=== PATIENT | male | born 1960 | race Caucasian/White ===

== ENCOUNTER 2020-08-28 08:25 | Outpatient (REF) | payer OTHER, SELFPAY ==
[2020-08-28 09:40] LABS: Glucose Urine UA NEG (NEG); Leukocyte Esterase Urine NEG (NEG); Nitrite Urine NEG (NEG); Specific Gravity - Urine 1.025 (1.005-1.025); Urine Blood NEG (NEG); Urine Ketones 5 MG/DL (NEG); Urine Protein NEG (NEG-TRACE)
[2020-08-28 09:42] LABS: Appearance Urine CLEAR; Color Urine YELLOW
[2020-08-28 09:57] LABS: MANUAL DIFF FLAG NO
[2020-08-28 10:05] LABS: Basophils Percent Auto 0.6 % (0-2); Eosinophils Absolute Auto 0.3 X10*3/uL (0.0-0.4); Eosinophils Percent Auto 4.1 % (0-4); Hematocrit 47.1 % (42-52); Hemoglobin 16.2 g/dl (14.0-18.0); Imm Gran Abs Auto 0.01 X10*3/uL (0.00-0.03); Imm Gran Pct Auto 0.2 % (0.0-0.4); Lymphocytes Absolute Auto 1.8 X10*3/uL (1.2-4.9); Lymphocytes Percent Auto 27.5 % (20-40); Mean Corpuscular HGB Conc 34.4 g/dl (31.0-36.0); Mean Corpuscular Hemoglobin 29.1 pg (27.0-33.0); Mean Corpuscular Volume 84.6 fL (80-98); Mean Platelet Volume 10.9 fL (9.4-12.4); Monocytes Absolute Auto 0.6 X10*3/uL (0.1-1.2); Monocytes Percent Auto 8.7 % (2-11); Neutrophils Absolute Auto 3.9 X10*3/uL (2.0-8.3); Neutrophils Percent Auto 58.9 % (45-73); Platelet Count 275 X10*3/uL (160-400); Red Blood Count 5.57 X10*6/uL (4.60-5.80); Red Cell Distribution Width 13.2 % (11.0-16.0); White Blood Count 6.5 X10*3/uL (4.8-10.8)
[2020-08-28 10:31] LABS: Alanine Aminotransferase 19 U/L (0-40); Albumin Level 4.6 g/dL (3.5-5.0); Alkaline Phosphatase 93 U/L (39-117); Anion Gap 14 (12-20); Aspartate Amino Transferase 24 U/L (5-37); Bilirubin Total 1.3 mg/dL (0.0-1.0); Blood Urea Nitrogen 17 mg/dL (9-16); Calcium 9.8 mg/dL (8.4-10.2); Carbon Dioxide 29 mmol/L (22-29); Chloride 102 mmol/L (96-108); Cholesterol 157 mg/dL; Estimated Glomerular Filt Rate 59; Glucose Fasting 93 mg/dL (60-99); HDL Cholesterol 52 mg/dL; LDL Cholesterol Calculated 90 mg/dl; Potassium 4.3 mmol/L (3.3-5.1); Sodium 141 mmol/L (135-145); Total Protein 7.4 g/dL (6.5-8.0); Triglycerides 79 mg/dL
[2020-08-28 10:52] LABS: TSH reflex Free T4 1.32 uIU/mL (0.32-4.0)
== END 2020-08-28 08:26 | disposition home or self-care (01) ==
LOC: HO.LAB 08:25
PROVIDERS: PCP Internal Medicine; Visit Provider Internal Medicine
DX: I10 Essential (primary) hypertension (principal); K21.9 Gastro-esophageal reflux disease without esophagitis; E78.00 Pure hypercholesterolemia, unspecified; R73.01 Impaired fasting glucose; E66.9 Obesity, unspecified
CPT/HCPCS: 36415; 80053; 80061; 81003; 84443; 85025

== ENCOUNTER 2020-11-18 12:03 | Outpatient (REF) | payer OTHER, SELFPAY ==
[2020-11-19 09:21] LABS: Lyme Blot 3.88 index
[2020-11-24 08:38] LABS: 18 KD (IgG) Band NON-REACTIVE; 23 KD (IgG) Band NON-REACTIVE; 23 KD (IgM) Band REACTIVE; 28 KD (IgG) Band NON-REACTIVE; 30 KD (IgG) Band NON-REACTIVE; 39 KD (IgM) Band REACTIVE; 41 KD (IgM) Band NON-REACTIVE; 45 KD (IgG) Band NON-REACTIVE; 58 KD (IgG) Band NON-REACTIVE; 66 KD (IgG) Band NON-REACTIVE; 93 KD (IgG) Band NON-REACTIVE; Lyme IgG Blot Interp NEGATIVE (NEGATIVE); Lyme IgM Blot Interp POSITIVE (NEGATIVE)
[2020-11-24 08:40] LABS: Lyme Abs Screen POSITIVE
== END 2020-11-18 12:04 | disposition home or self-care (01) ==
LOC: HO.HMGCLDS 12:03
PROVIDERS: PCP Internal Medicine; Visit Provider Nurse Practitioner Family
DX: R52 Pain, unspecified (principal)
CPT/HCPCS: 36415; 86617; 86618

== ENCOUNTER 2020-12-22 08:20 | Outpatient (REF) | payer OTHER, SELFPAY ==
[2020-12-22 09:18] LABS: Glucose Urine UA NEG (NEG); Leukocyte Esterase Urine NEG (NEG); Nitrite Urine NEG (NEG); Urine Blood NEG (NEG); Urine Ketones NEG (NEG); Urine Protein NEG (NEG-TRACE)
[2020-12-22 09:19] LABS: Appearance Urine CLEAR; Color Urine YELLOW; MANUAL DIFF FLAG NO
[2020-12-22 09:23] LABS: Basophils Absolute Auto 0.1 X10*3/uL (0.0-0.2); Basophils Percent Auto 0.9 % (0-2); Eosinophils Absolute Auto 0.2 X10*3/uL (0.0-0.4); Eosinophils Percent Auto 4.3 % (0-4); Hematocrit 45.2 % (42-52); Hemoglobin 15.1 g/dl (14.0-18.0); Imm Gran Abs Auto 0.01 X10*3/uL (0.00-0.03); Imm Gran Pct Auto 0.2 % (0.0-0.4); Lymphocytes Absolute Auto 1.7 X10*3/uL (1.2-4.9); Lymphocytes Percent Auto 30.1 % (20-40); Mean Corpuscular HGB Conc 33.4 g/dl (31.0-36.0); Mean Corpuscular Hemoglobin 28.7 pg (27.0-33.0); Mean Corpuscular Volume 85.8 fL (80-98); Mean Platelet Volume 10.6 fL (9.4-12.4); Monocytes Absolute Auto 0.4 X10*3/uL (0.1-1.2); Monocytes Percent Auto 7.8 % (2-11); Neutrophils Absolute Auto 3.2 X10*3/uL (2.0-8.3); Neutrophils Percent Auto 56.7 % (45-73); Platelet Count 224 X10*3/uL (160-400); Red Blood Count 5.27 X10*6/uL (4.60-5.80); Red Cell Distribution Width 13.9 % (11.0-16.0); White Blood Count 5.6 X10*3/uL (4.8-10.8)
[2020-12-22 09:34] LABS: Estimated Average Glucose 111 mg/dL; Hemoglobin A1c % 5.5 %
[2020-12-22 09:44] LABS: Alanine Aminotransferase 19 U/L (0-40); Albumin Level 4.2 g/dL (3.5-5.0); Alkaline Phosphatase 82 U/L (39-117); Anion Gap 11 (12-20); Aspartate Amino Transferase 18 U/L (5-37); Blood Urea Nitrogen 12 mg/dL (9-16); Calcium 9.6 mg/dL (8.4-10.2); Carbon Dioxide 27 mmol/L (22-29); Chloride 109 mmol/L (96-108); Cholesterol 154 mg/dL; Estimated Glomerular Filt Rate > 60; Glucose Fasting 96 mg/dL (60-99); HDL Cholesterol 53 mg/dL; LDL Cholesterol Calculated 81 mg/dl; Potassium 4.2 mmol/L (3.3-5.1); Sodium 143 mmol/L (135-145); Total Protein 6.7 g/dL (6.5-8.0); Triglycerides 102 mg/dL
[2020-12-22 09:58] LABS: TSH reflex Free T4 1.17 uIU/mL (0.32-4.0)
== END 2020-12-22 08:21 | disposition home or self-care (01) ==
LOC: HO.LAB 08:20
PROVIDERS: PCP Internal Medicine; Visit Provider Internal Medicine
DX: I10 Essential (primary) hypertension (principal); K21.9 Gastro-esophageal reflux disease without esophagitis; E78.00 Pure hypercholesterolemia, unspecified; R73.01 Impaired fasting glucose; R17 Unspecified jaundice; E66.9 Obesity, unspecified
CPT/HCPCS: 36415; 80053; 80061; 81003; 83036; 84443; 85025

== ENCOUNTER 2021-04-23 08:07 | Outpatient (REF) | payer OTHER, SELFPAY ==
[2021-04-23 08:31] LABS: MANUAL DIFF FLAG NO
[2021-04-23 08:57] LABS: Basophils Percent Auto 0.5 % (0-2); Eosinophils Absolute Auto 0.2 X10*3/uL (0.0-0.4); Hematocrit 45.6 % (42-52); Hemoglobin 15.4 g/dl (14.0-18.0); Imm Gran Abs Auto 0.01 X10*3/uL (0.00-0.03); Imm Gran Pct Auto 0.2 % (0.0-0.4); Lymphocytes Absolute Auto 1.6 X10*3/uL (1.2-4.9); Lymphocytes Percent Auto 25.9 % (20-40); Mean Corpuscular HGB Conc 33.8 g/dl (31.0-36.0); Mean Corpuscular Hemoglobin 28.9 pg (27.0-33.0); Mean Corpuscular Volume 85.7 fL (80-98); Mean Platelet Volume 10.3 fL (9.4-12.4); Monocytes Absolute Auto 0.6 X10*3/uL (0.1-1.2); Neutrophils Absolute Auto 3.9 X10*3/uL (2.0-8.3); Neutrophils Percent Auto 61.4 % (45-73); Platelet Count 226 X10*3/uL (160-400); Red Blood Count 5.32 X10*6/uL (4.60-5.80); Red Cell Distribution Width 13.6 % (11.0-16.0); White Blood Count 6.3 X10*3/uL (4.8-10.8)
[2021-04-23 09:22] LABS: Appearance Urine CLEAR; Color Urine YELLOW; Glucose Urine UA NEG (NEG); Leukocyte Esterase Urine NEG (NEG); Nitrite Urine NEG (NEG); Urine Blood NEG (NEG); Urine Ketones NEG (NEG); Urine Protein NEG (NEG-TRACE)
[2021-04-23 09:27] LABS: Alanine Aminotransferase 22 U/L (0-40); Albumin Level 4.4 g/dL (3.5-5.0); Alkaline Phosphatase 85 U/L (39-117); Anion Gap 11 (12-20); Aspartate Amino Transferase 24 U/L (5-37); Blood Urea Nitrogen 10 mg/dL (9-16); Calcium 9.6 mg/dL (8.4-10.2); Carbon Dioxide 29 mmol/L (22-29); Chloride 107 mmol/L (96-108); Cholesterol 148 mg/dL; Estimated Glomerular Filt Rate > 60; Glucose Fasting 110 mg/dL (60-99); HDL Cholesterol 48 mg/dL; LDL Cholesterol Calculated 82 mg/dl; Potassium 4.3 mmol/L (3.3-5.1); Sodium 143 mmol/L (135-145); Total Protein 7.2 g/dL (6.5-8.0); Triglycerides 93 mg/dL
[2021-04-23 09:50] LABS: TSH reflex Free T4 1.18 uIU/mL (0.32-4.0)
== END 2021-04-23 08:08 | disposition home or self-care (01) ==
LOC: HO.LAB 08:07
PROVIDERS: PCP Internal Medicine; Visit Provider Internal Medicine
DX: I10 Essential (primary) hypertension (principal); K21.9 Gastro-esophageal reflux disease without esophagitis; E78.00 Pure hypercholesterolemia, unspecified; R73.01 Impaired fasting glucose; E66.9 Obesity, unspecified
CPT/HCPCS: 36415; 80053; 80061; 81003; 84443; 85025

== ENCOUNTER 2021-08-28 07:35 | Outpatient (REF) | payer OTHER, SELFPAY ==
[2021-08-28 07:57] LABS: MANUAL DIFF FLAG NO
[2021-08-28 08:07] LABS: Basophils Percent Auto 0.6 % (0-2); Eosinophils Absolute Auto 0.2 X10*3/uL (0.0-0.4); Eosinophils Percent Auto 2.4 % (0-4); Hematocrit 45.3 % (42.0-52.0); Hemoglobin 15.5 g/dl (14.0-18.0); Imm Gran Abs Auto 0.02 X10*3/uL (0.00-0.03); Imm Gran Pct Auto 0.3 % (0.0-0.4); Lymphocytes Absolute Auto 1.7 X10*3/uL (1.2-4.9); Lymphocytes Percent Auto 25.8 % (20-40); Mean Corpuscular HGB Conc 34.2 g/dl (31.0-36.0); Mean Corpuscular Volume 84.8 fL (80.0-98.0); Mean Platelet Volume 10.1 fL (9.4-12.4); Monocytes Absolute Auto 0.6 X10*3/uL (0.1-1.2); Monocytes Percent Auto 8.7 % (2-11); Neutrophils Absolute Auto 4.2 x10*3/uL (2.0-8.3); Neutrophils Percent Auto 62.2 % (45-73); Platelet Count 250 X10*3/uL (160-400); Red Blood Count 5.34 X10*6/uL (4.60-5.80); White Blood Count 6.8 X10*3/uL (4.8-10.8)
[2021-08-28 08:39] LABS: Appearance Urine CLEAR; Color Urine YELLOW; Glucose Urine UA NEG (NEG); Leukocyte Esterase Urine NEG (NEG); Nitrite Urine NEG (NEG); PH 6.5 (5.0-8.0); Specific Gravity - Urine 1.025 (1.005-1.025); Urine Blood NEG (NEG); Urine Ketones NEG (NEG); Urine Protein TRACE MG/DL (NEG-TRACE)
[2021-08-28 09:05] LABS: Estimated Average Glucose 117 mg/dL; Hemoglobin A1c % 5.7 %
[2021-08-28 09:12] LABS: Alanine Aminotransferase 26 U/L (0-40); Albumin Level 4.2 g/dL (3.5-5.0); Alkaline Phosphatase 89 U/L (39-117); Anion Gap 13 (12-20); Aspartate Amino Transferase 24 U/L (5-37); Bilirubin Total 0.9 mg/dL (0.0-1.0); Blood Urea Nitrogen 17 mg/dL (9-16); Calcium 9.8 mg/dL (8.4-10.2); Carbon Dioxide 28 mmol/L (22-29); Chloride 106 mmol/L (96-108); Cholesterol 144 mg/dL; Estimated Glomerular Filt Rate > 60; Glucose Fasting 102 mg/dL (60-99); HDL Cholesterol 49 mg/dL; LDL Cholesterol Calculated 75 mg/dl; Potassium 4.7 mmol/L (3.3-5.1); Sodium 142 mmol/L (135-145); Total Protein 7.1 g/dL (6.5-8.0); Triglycerides 103 mg/dL
[2021-08-28 09:20] LABS: TSH reflex Free T4 1.18 uIU/mL (0.32-4.0); Vitamin D 25-OH Total 26.7 ng/mL (>30)
== END 2021-08-28 07:36 | disposition home or self-care (01) ==
LOC: HO.LAB 07:35
PROVIDERS: PCP Internal Medicine; Visit Provider Internal Medicine
DX: E78.00 Pure hypercholesterolemia, unspecified (principal); E55.9 Vitamin D deficiency, unspecified; I10 Essential (primary) hypertension; R73.01 Impaired fasting glucose
CPT/HCPCS: 36415; 80053; 80061; 81003; 82306; 83036; 84443; 85025

== ENCOUNTER 2021-12-22 07:20 | Outpatient (REF) | payer OTHER, SELFPAY ==
[2021-12-22 08:29] LABS: Alanine Aminotransferase 29 U/L (0-40); Albumin Level 4.2 g/dL (3.5-5.0); Alkaline Phosphatase 85 U/L (39-117); Anion Gap 12 (12-20); Aspartate Amino Transferase 23 U/L (5-37); Bilirubin Total 0.8 mg/dL (0.0-1.0); Blood Urea Nitrogen 15 mg/dL (9-16); Calcium 9.5 mg/dL (8.4-10.2); Carbon Dioxide 28 mmol/L (22-29); Chloride 107 mmol/L (96-108); Cholesterol 152 mg/dL; Estimated Average Glucose 111 mg/dL; Estimated Glomerular Filt Rate > 60; Glucose Fasting 105 mg/dL (60-99); HDL Cholesterol 43 mg/dL; Hemoglobin A1c % 5.5 %; LDL Cholesterol Calculated 88 mg/dl; Potassium 4.7 mmol/L (3.3-5.1); Sodium 142 mmol/L (135-145); Total Protein 6.9 g/dL (6.5-8.0); Triglycerides 107 mg/dL
[2021-12-22 08:57] LABS: Vitamin D 25-OH Total 28.2 ng/mL (>30)
== END 2021-12-22 07:21 | disposition home or self-care (01) ==
LOC: HO.LAB 07:20
PROVIDERS: PCP Internal Medicine; Visit Provider Internal Medicine
DX: E78.00 Pure hypercholesterolemia, unspecified (principal); I10 Essential (primary) hypertension; R73.01 Impaired fasting glucose; E55.9 Vitamin D deficiency, unspecified
CPT/HCPCS: 36415; 80053; 80061; 82306; 83036

== ENCOUNTER 2022-04-23 07:59 | Outpatient (REF) | payer OTHER, SELFPAY ==
[2022-04-23 08:13] LABS: MANUAL DIFF FLAG NO
[2022-04-23 08:33] LABS: Hematocrit 46.2 % (42.0-52.0); Hemoglobin 15.8 g/dl (14.0-18.0); White Blood Count 5.8 X10*3/uL (4.8-10.8)
[2022-04-23 08:34] LABS: Basophils Percent Auto 0.5 % (0-2); Eosinophils Absolute Auto 0.1 X10*3/uL (0.0-0.4); Eosinophils Percent Auto 1.9 % (0-4); Imm Gran Abs Auto 0.01 X10*3/uL (0.00-0.03); Imm Gran Pct Auto 0.2 % (0.0-0.4); Lymphocytes Absolute Auto 1.5 X10*3/uL (1.2-4.9); Lymphocytes Percent Auto 26.3 % (20-40); Mean Corpuscular HGB Conc 34.2 g/dl (31.0-36.0); Mean Corpuscular Hemoglobin 28.7 pg (27.0-33.0); Mean Platelet Volume 10.1 fL (9.4-12.4); Monocytes Absolute Auto 0.5 X10*3/uL (0.1-1.2); Monocytes Percent Auto 9.2 % (2-11); Neutrophils Absolute Auto 3.6 x10*3/uL (2.0-8.3); Neutrophils Percent Auto 61.9 % (45-73); Platelet Count 258 X10*3/uL (160-400); Red Cell Distribution Width 13.2 % (11.0-16.0)
[2022-04-23 08:39] LABS: Estimated Average Glucose 111 mg/dL; Hemoglobin A1C 150.1565 umol/L; Hemoglobin A1c % 5.5 %
[2022-04-23 08:47] LABS: Appearance Urine Clear; Color Urine Yellow; Glucose Urine UA Negative (Negative); Leukocyte Esterase Urine Negative (Negative); Nitrite Urine Negative (Negative); Specific Gravity - Urine 1.015 (1.005-1.025); Urine Blood Negative (Negative); Urine Ketones 15 mg/dL (Negative); Urine Protein Negative (Neg-Trace)
[2022-04-23 09:00] LABS: Alanine Aminotransferase 19 U/L (0-40); Albumin Level 4.8 g/dL (3.5-5.0); Alkaline Phosphatase 96 U/L (39-117); Anion Gap 19 (12-20); Aspartate Amino Transferase 29 U/L (5-37); Bilirubin Total 1.1 mg/dL (0.0-1.0); Blood Urea Nitrogen 15 mg/dL (9-16); Calcium 10.2 mg/dL (8.4-10.2); Carbon Dioxide 25 mmol/L (22-29); Chloride 103 mmol/L (96-108); Cholesterol 173 mg/dL; Estimated Glomerular Filt Rate > 60; Glucose Fasting 99 mg/dL (60-99); HDL Cholesterol 50 mg/dL; LDL Cholesterol Calculated 111 mg/dl; Potassium 4.6 mmol/L (3.3-5.1); Sodium 142 mmol/L (135-145); Total Protein 7.6 g/dL (6.5-8.0); Triglycerides 62 mg/dL
[2022-04-23 09:21] LABS: Vitamin D 25-OH Total 48.3 ng/mL (>30)
== END 2022-04-23 08:00 | disposition home or self-care (01) ==
LOC: HO.LAB 07:59
PROVIDERS: PCP Internal Medicine; Visit Provider Internal Medicine
DX: E78.00 Pure hypercholesterolemia, unspecified (principal); E55.9 Vitamin D deficiency, unspecified; R73.01 Impaired fasting glucose; I10 Essential (primary) hypertension
CPT/HCPCS: 36415; 80053; 80061; 81003; 82306; 83036; 85025

== ENCOUNTER 2022-08-28 08:46 | Outpatient (REF) | payer OTHER, SELFPAY ==
[2022-08-28 09:03] LABS: MANUAL DIFF FLAG NO
[2022-08-28 09:18] LABS: Basophils Percent Auto 0.8 % (0-2); Eosinophils Absolute Auto 0.1 X10*3/uL (0.0-0.4); Eosinophils Percent Auto 2.1 % (0-4); Hemoglobin 15.6 g/dl (14.0-18.0); Imm Gran Abs Auto 0.01 X10*3/uL (0.00-0.03); Imm Gran Pct Auto 0.2 % (0.0-0.4); Lymphocytes Absolute Auto 1.5 X10*3/uL (1.2-4.9); Lymphocytes Percent Auto 27.3 % (20-40); Mean Corpuscular HGB Conc 34.7 g/dl (31.0-36.0); Mean Corpuscular Hemoglobin 28.4 pg (27.0-33.0); Mean Corpuscular Volume 81.8 fL (80.0-98.0); Mean Platelet Volume 10.5 fL (9.4-12.4); Monocytes Absolute Auto 0.5 X10*3/uL (0.1-1.2); Monocytes Percent Auto 10.2 % (2-11); Neutrophils Absolute Auto 3.2 x10*3/uL (2.0-8.3); Neutrophils Percent Auto 59.4 % (45-73); Platelet Count 252 X10*3/uL (160-400); Red Cell Distribution Width 13.4 % (11.0-16.0); White Blood Count 5.3 X10*3/uL (4.8-10.8)
[2022-08-28 09:52] LABS: Alanine Aminotransferase 24 U/L (0-40); Albumin Level 4.5 g/dL (3.5-5.0); Alkaline Phosphatase 94 U/L (39-117); Anion Gap 19 (12-20); Aspartate Amino Transferase 32 U/L (5-37); Bilirubin Total 1.6 mg/dL (0.0-1.0); Blood Urea Nitrogen 14 mg/dL (9-16); Carbon Dioxide 24 mmol/L (22-29); Chloride 103 mmol/L (96-108); Cholesterol 143 mg/dL; Estimated Glomerular Filt Rate > 60; Glucose Fasting 86 mg/dL (60-99); HDL Cholesterol 47 mg/dL; LDL Cholesterol Calculated 85 mg/dl; Potassium 4.5 mmol/L (3.3-5.1); Sodium 141 mmol/L (135-145); Total Protein 7.1 g/dL (6.5-8.0); Triglycerides 58 mg/dL
[2022-08-28 10:11] LABS: TSH reflex Free T4 1.39 uIU/mL (0.32-4.0)
== END 2022-08-28 08:47 | disposition home or self-care (01) ==
LOC: HO.LAB 08:46
PROVIDERS: PCP Internal Medicine; Visit Provider Internal Medicine
DX: I10 Essential (primary) hypertension (principal); E78.00 Pure hypercholesterolemia, unspecified
CPT/HCPCS: 36415; 80053; 80061; 84443; 85025

== ENCOUNTER 2023-06-02 10:07 | Outpatient (AMB) | payer OTHER, SELFPAY ==
[2023-06-02 10:13] VITALS: BP 132/90; PULSE 60; O2SAT 98
--- NOTE | 2023-06-02 10:13 | MHC.PC.OV ---
Vital Signs 06/02/23 10:13 Height 5 ft 11 in Weight 215 lb 0.8 oz BMI 30.0 BP 132/90 H Blood Pressure Location Lt brachial Position Sitting Pulse 60 Pulse Source Pulse Oximeter Pulse Oximetry (%) 98 Oxygen Delivery Method Room Air Intake Visit Reasons: HTN, hyperlipidemia, IFG- NEEDSPHQ9+THRIVE Log Haul Chain Feeder Required: No Allergies No Known Allergies Allergy (Verified 06/02/23 10:23) Medication List - Last Reconciled 06/02/23 by WILLY Bassett atenolol 50 mg PO DAILY 90 days atorvastatin 40 mg PO DAILY cholecalciferol (vitamin D3) 50 mcg PO DAILY 90 days hydrochlorothiazide 25 mg PO DAILY ibuprofen 200 mg PO Q12H PRN omeprazole 40 mg PO QAM 90 days Tobacco use date assessed: 06/02/23 Dental Screening Dental Screen Date: 06/02/23 Did you have a dental visit in the last 12 months?: Yes Did you have a dental problem in the last 6 months where you did not have access to dental care?: No Was dental information given to patient?: Patient has dentist HPI HTN, hyperlipidemia, IFG- NEEDSPHQ9+THRIVE HPI Details Patient is a 62-year-old male who presents today to follow-up on his chronic conditions. Patient of Dr. Nathan. Medical history significant for hypertension, hypercholesterolemia, GERD impaired fasting glucose obesity. Patient reports that he is compliant with medications and denies side effects. Reports normal blood pressures at home. No shortness of breath or chest pain. PFSH Medical History Vitamin D deficiency Elevated bilirubin Obesity (BMI 30-39.9) Impaired fasting glucose GERD (gastroesophageal reflux disease) Pure hypercholesterolemia Benign essential hypertension Surgical History No pertinent past surgical history Family History Father Hypertension CVD (cardiovascular disease) Mother Hypertension Cancer Breast cancer Ovarian cancer Daughter In good health Sister In good health Sister In good health Sister In good health Brother In good health Social History Household Members: None Housing: House Alcohol intake: former Patient Tobacco Use Status: Former Tobacco user Second Hand Smoke Exposure: Yes service: No Current occupational status: employed Current occupation: self employed- remodeling Cognitive needs: No Hearing needs: No Vision needs: No Questionnaire PHQ-9 Over the last 2 weeks, how often have you been bothered by any of the following problems? 1. Little interest or pleasure in doing things: not at all 2. Feeling down, depressed, or hopeless: not at all 3. Trouble falling or staying asleep, or sleeping too much: not at all 4. Feeling tired or having little energy: not at all 5. Poor appetite or overeating: not at all 6. Feeling bad about yourself - or that you are a failure or have let yourself or your family down: not at all 7. Trouble concentrating on things, such as reading the newspaper or watching television: not at all 8. Moving or speaking so slowly that other people could have noticed. Or the opposite - being so fidgety or restless that you have been moving around a lot more than usual: not at all 9. Thoughts that you would be better off or of hurting yourself in some way: not at all Total score: 0 Depression Screening Interpretation: Negative Depression Screening Done: Yes 54582 - PHQ-9 Billing: Yes Source: Developed by Drs. Bhavin Gongora, Pola Vargas and colleagues, with an educational allyson from [employer]. Thrive Questionnaire Date Thrive assessed: 05/04/22 AUDIT C Alcohol Use Questionnaire (AUDIT-C) 1. How often do you have a drink containing alcohol?: Never 3. How often do you have six or more drinks on one occasion?: Never Total Score: 0 Score Reviewed/Action Taken: No LEYLA-7 AMB Questionnaire LEYLA-7 Date LEYLA - 7 assessed: 06/02/23 Source: Developed by Scarlett Doty Kurt Kroenke and colleagues, with an educational allyson from [employer]. Review of Systems Const Denies body aches, Denies chills, Denies fever(s) and Denies headache(s) ENT Denies dizziness, Denies otalgia, Denies headache(s), Denies nasal discharge, Denies sinus pain and Denies sore throat Card Denies chest pain, Denies edema, Denies lightheadedness and Denies dyspnea Resp Denies cough, Denies dyspnea and Denies wheezing GI Denies abdominal pain Denies dysuria Musc Denies myalgias Skin/Breast Denies rash Neuro Denies dizziness and Denies headache(s) Aller/Immun Denies wheezing Physical exam (Primary Care) Vital Signs: Last Vital Signs Pulse 60 06/02/23 10:13 BP 132/90 H 06/02/23 10:13 Pulse Ox 98 06/02/23 10:13 Oxygen Delivery Method Room Air 06/02/23 10:13 BMI result Body Mass Index 30.0 Tobacco/Smoking Status: Tobacco use Status Tobacco use date assessed 06/02/23 06/02/23 10:14 Patient Tobacco Use Status Former Tobacco user 06/02/23 10:14 PHQ-9: PHQ-9 Score PHQ-9: Total score 0 06/02/23 10:23 Depression Screening Interpretation: Negative Thrive Assessment: Date of Thrive Assessment Date Thrive assessed 05/04/22 06/02/23 10:14 Const General: cooperative and no acute distress Orientation/consciousness: patient oriented x3 HENMT Head: Yes normocephalic and Yes atraumatic Face and sinus: Yes sinuses nontender Mouth: oropharynx normal and moist mucous membranes Throat: Yes posterior oropharynx normal Eyes General: appearance normal, both eyes and all related structures Neck Neck: Yes normal visual inspection and Yes full ROM Resp Effort & Inspection: normal respiratory effort and able to speak in complete sentences Auscultation: clear to auscultation bilaterally, no crackles, no rales, no rhonchi and no wheezes Cardio Rate: regular rate Rhythm: regular rhythm Heart sounds: S1 normal heart sound present and S2 normal heart sound present GI Auscultation: normal bowel sounds Skin General skin exam: no rashes or lesions noted Neuro General: patient oriented x3 Gait exam (Neuro): Normal gait present Extrem General: Yes full ROM and No edema Office Procedures Flu Questionnaire Does the patient have a severe egg allergy?: No Does the patient have severe life threatening allergies?: No Does the patient have a fever or illness today?: No Has the patient ever had Guillain-Due West Syndrome?: No Has the patient ever had any past reaction to a flu shot?: No Immunizations flu vacc [id number] 6mos up(PF) 60 mcg(15 mcgx4)/0.5 mL IM syringe Performing Provider: WILLY Bassett [facility] Administered by: GISELLA Sena on 06/02/23 10:23 Dose Route Admin Location Dispensed Lot Number Expiration Date NDC Technical Proposal Writer 0.5 mL IM Left Deltoid 0.5 mL [id number] 01/15/24 16613-669-00 [employer] VIS Given Date VIS Provided VIS Publication Date 06/02/23 Single Vaccine 21 Eligibility Eligibility Date Funding Source Not VFC Eligible 06/02/23 Private Assessment and Plan Assessment & Plan (1) Benign essential hypertension: Code(s): I10 - Essential (primary) hypertension Plan: Goal BP equal or less than 140/90 Continue current treatment Low-sodium diet and weight loss (2) Pure hypercholesterolemia: Code(s): E78.00 - Pure hypercholesterolemia, unspecified Plan: Continue atorvastatin Low-cholesterol diet (3) GERD (gastroesophageal reflux disease): Code(s): K21.9 - Gastro-esophageal reflux disease without esophagitis Qualifiers: Esophagitis presence: without esophagitis Qualified Code(s): K21.9 - Gastro-esophageal reflux disease without esophagitis Plan: Diet controlled (4) Impaired fasting glucose: Code(s): R73.01 - Impaired fasting glucose Plan: A1c ordered Orders: Orders Lipid Panel 4 Months E78.00 - Pure hypercholesterolemia, unspecified Comprehensive [place]. Panel Fast 4 Months I10 - Essential (primary) hypertension Influenza [id number] Immunization Today Z23 - Encounter for immunization Hemoglobin A1c 4 Months R73.01 - Impaired fasting glucose Medications: Refilled atenolol 50 mg PO DAILY 90 tabs 0RF 90 days I10 - Essential (primary) hypertension Coding Level of Care Code Est Pt Level 4 (31874) Diagnoses Benign essential hypertension I10 Pure hypercholesterolemia E78.00 Gastroesophageal reflux disease without esophagitis K21.9 Esophagitis presence: without esophagitis Impaired fasting glucose R73.01
== END 2023-06-02 10:30 | disposition home or self-care (01) ==
PROVIDERS: PCP Internal Medicine; Visit Provider Nurse Practitioner Family
DX: I10 Essential (primary) hypertension (principal); E78.00 Pure hypercholesterolemia, unspecified; K21.9 Gastro-esophageal reflux disease without esophagitis; R73.01 Impaired fasting glucose; Z23 Encounter for immunization
CPT/HCPCS: 90471; 90686; 99214

== ENCOUNTER 2023-07-05 07:17 | Outpatient (AMB) | payer OTHER, SELFPAY ==
--- NOTE | 2023-07-05 07:26 | MHC.PC.OV ---
Vital Signs 07/05/23 07:27 Height 5 ft 11 in Weight 212 lb BMI 29.6 BP 118/80 Blood Pressure Location Lt brachial Position Sitting Intake Visit Reasons: open cyst on buttock Intake Note: Patient here for cyst on buttock Net Development Manager Required: No Accompanied by: Self / Same As Patient Allergies No Known Allergies Allergy (Verified 07/05/23 07:36) Medication List - Last Reconciled 07/05/23 by Arlen Davenport MD atenolol 50 mg PO DAILY 90 days atorvastatin 40 mg PO DAILY cephalexin 500 mg PO QID 7 days cholecalciferol (vitamin D3) 50 mcg PO DAILY 90 days hydrochlorothiazide 25 mg PO DAILY ibuprofen 200 mg PO Q12H PRN omeprazole 40 mg PO QAM 90 days Tobacco use date assessed: 06/02/23 Dental Screening Dental Screen Date: 07/05/23 Did you have a dental visit in the last 12 months?: Yes Did you have a dental problem in the last 6 months where you did not have access to dental care?: No Was dental information given to patient?: Patient has dentist HPI HPI Comments History of Present Illness Details This is a 63-year-old male with hypertension, pure hypercholesterolemia and GERD that complains of an abscess in his right buttock that has improved by using Keflex. The abscess already burst and looks dry. I suggest to complete the antibiotic. Blood pressure stable. On statins for his pure hypercholesterolemia. GERD stable with PPIs. Denies any chest pain or shortness of breath. [facility] Medical History (Updated 07/05/23 @ 07:56 by Arlen Davenport MD) Vitamin D deficiency Elevated bilirubin Obesity (BMI 30-39.9) Impaired fasting glucose GERD (gastroesophageal reflux disease) Pure hypercholesterolemia Benign essential hypertension Surgical History No pertinent past surgical history Family History Father Hypertension CVD (cardiovascular disease) Mother Hypertension Cancer Breast cancer Ovarian cancer Daughter In good health Sister In good health Sister In good health Sister In good health Brother In good health Social History Household Members: None Housing: House Alcohol intake: former Patient Tobacco Use Status: Former Tobacco user e-Cigarette/Vaping Use: Never Used Second Hand Smoke Exposure: Yes service: No Current occupational status: employed Current occupation: self employed- remodeling Cognitive needs: No Hearing needs: No Vision needs: No Questionnaire Thrive Questionnaire Date Thrive assessed: 05/04/22 LEYLA-7 AMB Questionnaire LEYLA-7 Date LEYLA - 7 assessed: 06/02/23 Source: Developed by Drs. Bhavin Gongora, Scarlett Ramírez, Pola Fairchild and colleagues, with an educational allyson from [employer]. Review of Systems Const All systems reviewed & are unremarkable except as noted in HPI and below Eyes Reports no additional complaints, Denies change in vision and Denies other visual disturbances Card Denies chest pain at rest, Denies chest pain with activity, Denies edema, Denies irregular heart rhythm, Denies claudication, Denies dyspnea, Denies dyspnea on exertion, Denies orthopnea, Denies paroxysmal nocturnal dyspnea and Denies slow heart rate Resp Denies cough, Denies dyspnea and Denies dyspnea on exertion GI Denies abdominal pain, Denies change in bowel habits, Denies excessive flatus, Denies nausea and Denies vomiting Denies urinary hesitancy, Denies urinary incontinence and Denies urinary urgency Musc Denies abnormal gait, Denies atrophy, Denies deformity and Denies limited range of motion Skin/Breast Denies bleeding lesions, Denies changing lesions and Denies rash Neuro Denies abnormal gait, Denies behavioral changes and Denies lack of coordination Psych Denies behavioral changes Physical exam (Primary Care) Vital Signs: Last Vital Signs BP 118/80 07/05/23 07:27 BMI result Body Mass Index 29.6 Tobacco/Smoking Status: Tobacco use Status Tobacco use date assessed 06/02/23 07/05/23 07:30 Patient Tobacco Use Status Former Tobacco user 07/05/23 07:30 e-Cigarette/Vaping Use Never Used 07/05/23 07:30 Thrive Assessment: Date of Thrive Assessment Date Thrive assessed 05/04/22 07/05/23 07:30 Eyes General: appearance normal, both eyes and all related structures Eyelids: Yes eyelids normal Conjunctivae: conjunctivae normal Neck Neck: Yes normal visual inspection and Yes supple Resp Effort & Inspection: normal respiratory effort Auscultation: clear to auscultation bilaterally Cardio Jugular venous distension: no JVD Rate: regular rate Rhythm: regular rhythm Heart sounds: S1 normal heart sound present and S2 normal heart sound present Skin Other: redness in right buttock abscess. Grinder Operator Automatic was Amira Whalen. Extrem General: Yes full ROM Assessment and Plan Assessment & Plan (1) Benign essential hypertension: Code(s): I10 - Essential (primary) hypertension Plan: Continue hydrochlorothiazide and atenolol. Blood pressure goal is equal or less than 130/80. (2) Pure hypercholesterolemia: Code(s): E78.00 - Pure hypercholesterolemia, unspecified Plan: Continue statins. (3) GERD (gastroesophageal reflux disease): Code(s): K21.9 - Gastro-esophageal reflux disease without esophagitis Qualifiers: Esophagitis presence: without esophagitis Qualified Code(s): K21.9 - Gastro-esophageal reflux disease without esophagitis Plan: Continue PPIs. (4) Abscess: Code(s): L02.91 - Cutaneous abscess, unspecified Plan: Continue Keflex. Coding Level of Care Code Est Pt Level 4 (69462) Diagnoses Benign essential hypertension I10 Pure hypercholesterolemia E78.00 Gastroesophageal reflux disease without esophagitis K21.9 Esophagitis presence: without esophagitis Abscess L02.91 Time Spent (min) 21
[2023-07-05 07:27] VITALS: BP 118/80; BMI 29.6
== END 2023-07-05 07:42 | disposition home or self-care (01) ==
PROVIDERS: PCP Internal Medicine; Visit Provider Internal Medicine
DX: I10 Essential (primary) hypertension (principal); E78.00 Pure hypercholesterolemia, unspecified; K21.9 Gastro-esophageal reflux disease without esophagitis; L02.91 Cutaneous abscess, unspecified
CPT/HCPCS: 99214

== ENCOUNTER 2023-09-29 07:39 | Outpatient (REF) | payer OTHER, SELFPAY ==
[2023-09-29 08:15] LABS: Estimated Average Glucose 111 mg/dL; Hemoglobin A1c % 5.5 % (<6.0)
[2023-09-29 08:31] LABS: Alanine Aminotransferase 26 U/L (0-40); Albumin Level 4.6 g/dL (3.5-5.0); Alkaline Phosphatase 102 U/L (39-117); Anion Gap 14 (12-20); Aspartate Amino Transferase 29 U/L (5-37); Bilirubin Total 1.5 mg/dL (0.0-1.0); Blood Urea Nitrogen 15 mg/dL (9-16); Calcium 10.2 mg/dL (8.4-10.2); Carbon Dioxide 29 mmol/L (22-29); Chloride 101 mmol/L (96-108); Cholesterol 177 mg/dL (<200); Estimated Glomerular Filt Rate > 60; Glucose Fasting 100 mg/dL (60-99); HDL Cholesterol 53 mg/dL (>40); LDL Cholesterol Calculated 103 mg/dL (<100); Potassium 3.7 mmol/L (3.3-5.1); Sodium 140 mmol/L (135-145); Triglycerides 108 mg/dL (<150)
== END 2023-09-29 07:40 | disposition home or self-care (01) ==
LOC: HO.LAB 07:39
PROVIDERS: PCP Internal Medicine; Visit Provider Nurse Practitioner Family
DX: I10 Essential (primary) hypertension (principal); R73.01 Impaired fasting glucose; E78.00 Pure hypercholesterolemia, unspecified
CPT/HCPCS: 36415; 80053; 80061; 83036

== ENCOUNTER 2023-10-20 09:21 | Outpatient (AMB) | payer OTHER, SELFPAY ==
[2023-10-20 09:23] VITALS: BP 150/80; PULSE 70; O2SAT 98; BMI 31.1
--- NOTE | 2023-10-20 09:23 | A.OFFPC_ITS ---
Vital Signs 10/20/23 09:23 10/20/23 09:29 Height 5 ft 11 in 5 ft 11 in Weight 223 lb BMI 31.1 BP 150/80 H Blood Pressure Location Lt brachial Lt brachial Position Sitting Sitting Pulse 70 Pulse Source Pulse Oximeter Pulse Oximeter Pulse Oximetry (%) 98 Oxygen Delivery Method Room Air Room Air Intake Visit Reasons: HTN, HLD Client Service Representative Required: No Director Of Video Analytics: Not Required per policy Accompanied by: Self / Same As Patient Allergies No Known Allergies Allergy (Verified 03/15/24 10:08) Medication List - Last Reconciled 10/20/23 by Gennaro Nathan MD atenolol 50 mg PO DAILY 90 days atorvastatin 40 mg PO DAILY cholecalciferol (vitamin D3) 50 mcg PO DAILY 90 days hydrochlorothiazide 25 mg PO DAILY ibuprofen 200 mg PO Q12H PRN omeprazole 40 mg PO QAM 90 days Tobacco use date assessed: 10/20/23 Dental Screening Dental Screen Date: 10/20/23 Did you have a dental visit in the last 12 months?: Yes Did you have a dental problem in the last 6 months where you did not have access to dental care?: No Was dental information given to patient?: Patient has dentist HPI HTN, HLD HPI Details Patient comes in today for his follow up visit - was last seen by me over a year ago on 05/04/2022 Patient states that he feels okay He denies any headaches or dizziness Denies any chest pains, no SOB No nausea/vomiting, no abdominal pain No change in bowel habits noted Had his follow up labs done a couple of weeks ago - to discuss his results [facility] Medical History Vitamin D deficiency Elevated bilirubin Obesity (BMI 30-39.9) Impaired fasting glucose GERD (gastroesophageal reflux disease) Pure hypercholesterolemia Benign essential hypertension Surgical History No pertinent past surgical history Family History Father Hypertension CVD (cardiovascular disease) Mother Hypertension Cancer Breast cancer Ovarian cancer Daughter In good health Sister In good health Sister In good health Sister In good health Brother In good health Social History Household Members: None Housing: House Alcohol intake: former Patient Tobacco Use Status: Former Tobacco user e-Cigarette/Vaping Use: Never Used Second Hand Smoke Exposure: Yes service: No Current occupational status: employed Current occupation: self employed- remodeling Cognitive needs: No Hearing needs: No Vision needs: No Questionnaire PHQ-9 Over the last 2 weeks, how often have you been bothered by any of the following problems? 1. Little interest or pleasure in doing things: not at all 2. Feeling down, depressed, or hopeless: not at all 3. Trouble falling or staying asleep, or sleeping too much: not at all 4. Feeling tired or having little energy: not at all 5. Poor appetite or overeating: not at all 6. Feeling bad about yourself - or that you are a failure or have let yourself or your family down: not at all 7. Trouble concentrating on things, such as reading the newspaper or watching television: not at all 8. Moving or speaking so slowly that other people could have noticed. Or the opposite - being so fidgety or restless that you have been moving around a lot more than usual: not at all 9. Thoughts that you would be better off or of hurting yourself in some way: not at all Total score: 0 Depression Screening Interpretation: Negative Depression Screening Done: Yes 23829 - PHQ-9 Billing: Yes Source: Developed by Drs. Bhavin Gongora, Scarlett Ramírez, Pola Fairchild and colleagues, with an educational allyson from [employer] Thrive Questionnaire Date Thrive assessed: 10/20/23 I am a: Patient What is your living situation today?: I have a steady place to live Within the past 12 months, did the food you bought not last and you didn't have the money to get more?: Never true Within the past 12 months, did you worry whether your food would run out before you got money to buy more?: Never true Do you have trouble paying for medicines?: No Do you have trouble getting transportation to medical appointments?: No Do you have trouble paying your heating and electricity bill?: No Do you have trouble taking care of your child, family member or friend?: No Do you have trouble with day-to-day activities such as bathing, preparing meals, shopping, managing finances, etc.?: No Are you currently unemployed and looking for a job?: No Are you interested in more education?: No Please select the resources that you would like help with: None Currently or been in a relationship where the following occur: no concerns reported THRIVE Score: 0 AUDIT C Alcohol Use Questionnaire (AUDIT-C) 1. How often do you have a drink containing alcohol?: Never 3. How often do you have six or more drinks on one occasion?: Never Total Score: 0 Score Reviewed/Action Taken: Yes LEYLA-7 AMB Questionnaire LEYLA-7 Date LEYLA - 7 assessed: 10/20/23 Feeling nervous, anxious, or on edge: 0 = Not at all Not being able to stop or control worryin = Not at all Worrying too much about different things: 0 = Not at all Trouble relaxin = Not at all Being so restless that it is hard to sit still: 0 = Not at all Becoming easily annoyed or irritable: 0 = Not at all Feeling afraid as if something awful might happen: 0 = Not at all Total LEYLA-7 score (0-4 normal; 5-9 mild; 10-14 moderate; 15-21 severe): 0 Source: Developed by Drs. Bhavin Gongora, Scarlett Ramírez, Pola Fairchild and colleagues, with an educational allyson from [employer] Review of Systems Const Denies chills, Denies fatigue, Denies fever(s) and Denies headache(s) ENT Denies dysphagia, Denies dizziness, Denies otalgia, Denies headache(s), Denies neck pain, Denies odynophagia and Denies sore throat Card Denies chest pain, Denies palpitations and Denies dyspnea Resp Denies cough and Denies dyspnea GI Denies abdominal pain, Denies constipation, Denies dysphagia, Denies heartburn, Denies diarrhea, Denies nausea, Denies odynophagia and Denies vomiting Denies dysuria, Denies nocturia and Denies urinary frequency Musc Denies back pain and Denies neck pain Skin/Breast Denies rash Neuro Denies dizziness and Denies headache(s) Endo Denies fatigue and Denies palpitations Physical exam (Primary Care) Vital Signs: Last Vital Signs Pulse 70 10/20/23 09:23 BP 150/80 H 10/20/23 09:23 Pulse Ox 98 10/20/23 09:23 Oxygen Delivery Method Room Air 10/20/23 09:29 BMI result Body Mass Index 31.1 Tobacco/Smoking Status: Tobacco use Status Tobacco use date assessed 10/20/23 10/20/23 09:24 Patient Tobacco Use Status Former Tobacco user 10/20/23 09:24 e-Cigarette/Vaping Use Never Used 10/20/23 09:24 PHQ-9: PHQ-9 Score PHQ-9: Total score 0 10/20/23 12:45 Depression Screening Interpretation: Negative Thrive Assessment: Date of Thrive Assessment Date Thrive assessed 10/20/23 10/20/23 09:24 Currently or been in a relationship where the following occur: no concerns reported Const General: no acute distress and alert HENMT Ears: TM's normal bilaterally and EAC's normal Throat: Yes posterior oropharynx normal and Yes tonsils normal (no TP congestion) Neck Neck: Yes no lymphadenopathy and Yes supple Resp Auscultation: clear to auscultation bilaterally, no rales and no wheezes Cardio Rate: regular rate Rhythm: regular rhythm Heart sounds: no murmurs GI Palpation (GI): Soft to palpation and nontender Auscultation: normal bowel sounds General: Yes no CVA tenderness Back/Spine/Pelvis Back: no CVA tenderness Thoracic/Lumbar Spine: No lumbar spinal tenderness Skin Rashes: no rashes Extrem General: Yes no clubbing, cyanosis or edema Results Reviewed Results Reviewed: Laboratory Tests 09/29/23 07:52 Sodium 140 Potassium 3.7 Creatinine 1.14 Estimated GFR > 60 Fasting Glucose 100 H Hemoglobin A1c % 5.5 Calcium 10.2 Total Bilirubin 1.5 H AST 29 ALT 26 Triglycerides 108 Cholesterol 177 LDL Cholesterol, Calc 103 H HDL Cholesterol 53 Assessment and Plan Assessment & Plan (1) Benign essential hypertension: Code(s): I10 - Essential (primary) hypertension Plan: Reinforced low sodium diet - goal is systolic BP of 120 mm or less Continue Atenolol 50 mg QD and HCTZ 25 mg QD (2) Pure hypercholesterolemia: Code(s): E78.00 - Pure hypercholesterolemia, unspecified Plan: Results of his labs done a couple of weeks ago reviewed and discussed with patient Reinforced low cholesterol diet Continue Atorvastatin 40 mg QD Will recheck his labs and fasting lipids in 4 months for follow up (3) Impaired fasting glucose: Code(s): R73.01 - Impaired fasting glucose Plan: HgbA1c remains normal at 5.5% on his labs done a couple of weeks ago Reinforced low calorie diet/exercise as tolerated (4) GERD (gastroesophageal reflux disease): Code(s): K21.9 - Gastro-esophageal reflux disease without esophagitis Qualifiers: Esophagitis presence: without esophagitis Qualified Code(s): K21.9 - Gastro-esophageal reflux disease without esophagitis Plan: Dietary restrictions reinforced Continue Omeprazole 40 mg QAM (5) Vitamin D deficiency: Code(s): E55.9 - Vitamin D deficiency, unspecified Plan: Continue Vitamin D3 2000 units QD (6) Obesity (BMI 30-39.9): Code(s): E66.9 - Obesity, unspecified Plan: Reinforced diet/exercise as tolerated/lose weight Plan Follow up in 4 months Orders: Orders Comprehensive [place]. Panel Fast 4 Months E78.00 - Pure hypercholesterolemia, unspecified UA CC w/rflx Micro + Cult 4 Months R30.0 - Dysuria Complete Blood Count Auto Diff 4 Months D64.9 - Anemia, unspecified Lipid Panel 4 Months E78.00 - Pure hypercholesterolemia, unspecified TSH reflex Free T4 4 Months E78.00 - Pure hypercholesterolemia, unspecified Vitamin D 25-OH Total 4 Months E55.9 - Vitamin D deficiency, unspecified Hemoglobin A1c 4 Months R73.01 - Impaired fasting glucose Coding Level of Care Code Est Pt Level 4 (83808) Diagnoses Benign essential hypertension I10 Pure hypercholesterolemia E78.00 Impaired fasting glucose R73.01 Gastroesophageal reflux disease without esophagitis K21.9 Esophagitis presence: without esophagitis Vitamin D deficiency E55.9 Obesity (BMI 30-39.9) E66.9
== END 2023-10-20 10:04 | disposition home or self-care (01) ==
PROVIDERS: PCP Internal Medicine; Visit Provider Internal Medicine
DX: I10 Essential (primary) hypertension (principal); E78.00 Pure hypercholesterolemia, unspecified; R73.01 Impaired fasting glucose; K21.9 Gastro-esophageal reflux disease without esophagitis; E55.9 Vitamin D deficiency, unspecified; E66.9 Obesity, unspecified
CPT/HCPCS: 99214

== ENCOUNTER 2024-03-06 08:05 | Outpatient (REF) | payer OTHER, SELFPAY ==
[2024-03-06 08:36] LABS: MANUAL DIFF FLAG NO
[2024-03-06 09:03] LABS: Basophils Percent Auto 0.6 % (0-2); Eosinophils Absolute Auto 0.1 X10*3/uL (0.0-0.4); Eosinophils Percent Auto 2.6 % (0-4); Hematocrit 46.4 % (42.0-52.0); Hemoglobin 16.2 g/dl (14.0-18.0); Imm Gran Abs Auto 0.01 X10*3/uL (0.00-0.03); Imm Gran Pct Auto 0.2 % (0.0-0.4); Lymphocytes Absolute Auto 1.5 X10*3/uL (1.2-4.9); Lymphocytes Percent Auto 31.5 % (20-40); Mean Corpuscular HGB Conc 34.9 g/dl (31.0-36.0); Mean Corpuscular Hemoglobin 29.2 pg (27.0-33.0); Mean Corpuscular Volume 83.6 fL (80.0-98.0); Mean Platelet Volume 10.8 fL (9.4-12.4); Monocytes Absolute Auto 0.5 X10*3/uL (0.1-1.2); Monocytes Percent Auto 10.5 % (2-11); Neutrophils Absolute Auto 2.5 x10*3/uL (2.0-8.3); Neutrophils Percent Auto 54.6 % (45-73); Platelet Count 233 X10*3/uL (160-400); Red Blood Count 5.55 X10*6/uL (4.60-5.80); Red Cell Distribution Width 13.5 % (11.0-16.0); White Blood Count 4.7 X10*3/uL (4.8-10.8)
[2024-03-06 09:04] LABS: Appearance Urine Clear; Color Urine Yellow; Glucose Urine UA Negative (Negative); Leukocyte Esterase Urine Negative (Negative); Nitrite Urine Negative (Negative); PH 6.5 (5.0-9.0); Specific Gravity - Urine 1.015 (1.005-1.025); Urine Blood Negative (Negative); Urine Ketones Negative (Negative); Urine Protein Negative (Neg-Trace)
[2024-03-06 09:13] LABS: Estimated Average Glucose 108 mg/dL; Hemoglobin A1C 152.3591 umol/L; Hemoglobin A1c % 5.4 % (<6.0)
[2024-03-06 09:44] LABS: Alanine Aminotransferase 25 U/L (0-40); Albumin Level 4.4 g/dL (3.5-5.0); Alkaline Phosphatase 92 U/L (39-117); Anion Gap 12 (12-20); Aspartate Amino Transferase 27 U/L (5-37); Bilirubin Total 1.2 mg/dL (0.0-1.0); Blood Urea Nitrogen 14 mg/dL (9-16); Calcium 10.2 mg/dL (8.4-10.2); Carbon Dioxide 29 mmol/L (22-29); Chloride 104 mmol/L (96-108); Cholesterol 146 mg/dL (<200); Estimated Glomerular Filt Rate > 60; Glucose Fasting 109 mg/dL (60-99); HDL Cholesterol 43 mg/dL (>40); LDL Cholesterol Calculated 84 mg/dL (<100); Potassium 4.3 mmol/L (3.3-5.1); Sodium 141 mmol/L (135-145); Total Protein 7.5 g/dL (6.5-8.0); Triglycerides 98 mg/dL (<150)
== END 2024-03-06 08:06 | disposition home or self-care (01) ==
LOC: HO.LAB 08:05
PROVIDERS: PCP Internal Medicine; Visit Provider Internal Medicine
DX: E78.00 Pure hypercholesterolemia, unspecified (principal); D64.9 Anemia, unspecified; E55.9 Vitamin D deficiency, unspecified; R73.01 Impaired fasting glucose; R30.0 Dysuria
CPT/HCPCS: 36415; 80053; 80061; 81003; 82306; 83036; 84443; 85025

== ENCOUNTER 2024-03-15 09:36 | Outpatient (AMB) | payer OTHER, SELFPAY ==
[2024-03-15 09:46] VITALS: BP 118/70; PULSE 50; O2SAT 97; BMI 31.0
--- NOTE | 2024-03-15 09:46 | MHC.PC.OV ---
Vital Signs 03/15/24 09:46 Height 5 ft 11 in Weight 222 lb BMI 31.0 BP 118/70 Blood Pressure Location Lt brachial Position Sitting Pulse 50 Pulse Source Pulse Oximeter Pulse Oximetry (%) 97 Oxygen Delivery Method Room Air Intake Visit Reasons: HTN, hyperlipidemia, GERD, IFG Technical Training Instructor Required: No Accompanied by: Self / Same As Patient Allergies No Known Allergies Allergy (Verified 03/15/24 10:08) Medication List - Last Reconciled 03/15/24 by Gennaro Nathan MD atenolol 50 mg PO DAILY 90 days atorvastatin 40 mg PO DAILY cholecalciferol (vitamin D3) 50 mcg PO DAILY 90 days hydrochlorothiazide 25 mg PO DAILY ibuprofen 200 mg PO Q12H PRN omeprazole 40 mg PO QAM 90 days Tobacco use date assessed: 03/15/24 Dental Screening Dental Screen Date: 03/15/24 Did you have a dental visit in the last 12 months?: Yes Did you have a dental problem in the last 6 months where you did not have access to dental care?: No Was dental information given to patient?: Patient has dentist HPI HTN, hyperlipidemia, GERD, IFG HPI Details Patient comes in today for his follow up visit States that he feels okay He denies any headaches or dizziness Denies any chest pains, no SOB No nausea/vomiting, no abdominal pain No change in bowel habits noted Had his follow up labs done last week - to discuss his results [facility] Medical History Vitamin D deficiency Elevated bilirubin Obesity (BMI 30-39.9) Impaired fasting glucose GERD (gastroesophageal reflux disease) Pure hypercholesterolemia Benign essential hypertension Surgical History No pertinent past surgical history Family History Father Hypertension CVD (cardiovascular disease) Mother Hypertension Cancer Breast cancer Ovarian cancer Daughter In good health Sister In good health Sister In good health Sister In good health Brother In good health Social History Household Members: None Housing: House Alcohol intake: former Patient Tobacco Use Status: Former Tobacco user e-Cigarette/Vaping Use: Never Used Second Hand Smoke Exposure: Yes service: No Current occupational status: employed Current occupation: self employed- remodeling Cognitive needs: No Hearing needs: No Vision needs: No Questionnaire PHQ-9 Over the last 2 weeks, how often have you been bothered by any of the following problems? 1. Little interest or pleasure in doing things: not at all 2. Feeling down, depressed, or hopeless: not at all 3. Trouble falling or staying asleep, or sleeping too much: not at all 4. Feeling tired or having little energy: not at all 5. Poor appetite or overeating: not at all 6. Feeling bad about yourself - or that you are a failure or have let yourself or your family down: not at all 7. Trouble concentrating on things, such as reading the newspaper or watching television: not at all 8. Moving or speaking so slowly that other people could have noticed. Or the opposite - being so fidgety or restless that you have been moving around a lot more than usual: not at all 9. Thoughts that you would be better off or of hurting yourself in some way: not at all Total score: 0 Depression Screening Interpretation: Negative Depression Screening Done: Yes 35631 - PHQ-9 Billing: Yes Source: Developed by Drs. Bhavin Gongora, Scarlett Ramírez, Pola Fairchild and colleagues, with an educational allyson from [employer]. Thrive Questionnaire Date Thrive assessed: 03/15/24 I am a: Patient What is your living situation today?: I have a steady place to live Within the past 12 months, did the food you bought not last and you didn't have the money to get more?: Never true Within the past 12 months, did you worry whether your food would run out before you got money to buy more?: Never true Do you have trouble paying for medicines?: No Do you have trouble getting transportation to medical appointments?: No Do you have trouble paying your heating and electricity bill?: No Do you have trouble taking care of your child, family member or friend?: No Do you have trouble with day-to-day activities such as bathing, preparing meals, shopping, managing finances, etc.?: No Are you currently unemployed and looking for a job?: No Are you interested in more education?: No Please select the resources that you would like help with: None Currently or been in a relationship where the following occur: No concerns reported THRIVE Score: 0 AUDIT C Alcohol Use Questionnaire (AUDIT-C) 1. How often do you have a drink containing alcohol?: Never 3. How often do you have six or more drinks on one occasion?: Never Total Score: 0 Score Reviewed/Action Taken: Yes LEYLA-7 AMB Questionnaire LEYLA-7 Date LEYLA - 7 assessed: 03/15/24 Feeling nervous, anxious, or on edge: 0 = Not at all Not being able to stop or control worryin = Not at all Worrying too much about different things: 0 = Not at all Trouble relaxin = Not at all Being so restless that it is hard to sit still: 0 = Not at all Becoming easily annoyed or irritable: 0 = Not at all Feeling afraid as if something awful might happen: 0 = Not at all Total LEYLA-7 score (0-4 normal; 5-9 mild; 10-14 moderate; 15-21 severe): 0 Source: Developed by Drs. Bhavin Gongora, Scarlett Ramírez, Pola Fairchild and colleagues, with an educational allyson from [employer]. Review of Systems Const Denies chills, Denies fatigue, Denies fever(s) and Denies headache(s) ENT Denies dysphagia, Denies dizziness, Denies otalgia, Denies headache(s), Denies neck pain, Denies odynophagia and Denies sore throat Card Denies chest pain, Denies palpitations and Denies dyspnea Resp Denies cough, Denies dyspnea and Denies wheezing GI Denies abdominal pain, Denies constipation, Denies dysphagia, Denies heartburn, Denies diarrhea, Denies nausea, Denies odynophagia and Denies vomiting Denies dysuria, Denies nocturia and Denies urinary frequency Musc Denies back pain, Denies arthralgias and Denies neck pain Skin/Breast Denies rash Neuro Denies dizziness and Denies headache(s) Psych Denies anxiety and Denies depression Endo Denies fatigue and Denies palpitations Aller/Immun Denies wheezing Physical exam (Primary Care) Vital Signs: Last Vital Signs Pulse 50 03/15/24 09:46 BP 118/70 03/15/24 09:46 Pulse Ox 97 03/15/24 09:46 Oxygen Delivery Method Room Air 03/15/24 09:46 BMI result Body Mass Index 31.0 Tobacco/Smoking Status: Tobacco use Status Tobacco use date assessed 03/15/24 03/15/24 09:47 Patient Tobacco Use Status Former Tobacco user 03/15/24 09:47 e-Cigarette/Vaping Use Never Used 03/15/24 09:47 PHQ-9: PHQ-9 Score PHQ-9: Total score 0 03/15/24 09:47 Depression Screening Interpretation: Negative Thrive Assessment: Date of Thrive Assessment Date Thrive assessed 03/15/24 03/15/24 09:47 Currently or been in a relationship where the following occur: No concerns reported Const General: no acute distress and alert HENMT Ears: TM's normal bilaterally and EAC's normal Throat: Yes posterior oropharynx normal and Yes tonsils normal (no TP congestion) Neck Neck: Yes no lymphadenopathy and Yes supple Resp Auscultation: clear to auscultation bilaterally, no rales and no wheezes Cardio Rate: regular rate Rhythm: regular rhythm Heart sounds: no murmurs GI Palpation (GI): Soft to palpation and nontender Auscultation: normal bowel sounds General: Yes no CVA tenderness Back/Spine/Pelvis Back: no CVA tenderness Thoracic/Lumbar Spine: No lumbar spinal tenderness Skin Rashes: no rashes Extrem General: Yes no clubbing, cyanosis or edema Results Reviewed Results Reviewed: Laboratory Tests 09/29/23 03/06/24 03/06/24 07:52 08:27 08:30 WBC 4.7 L Hgb 16.2 Hct 46.4 Plt Count 233 Sodium 140 141 Potassium 3.7 4.3 Creatinine 1.14 1.09 Estimated GFR > 60 > 60 Fasting Glucose 100 H 109 H Hemoglobin A1c % 5.5 5.4 Calcium 10.2 10.2 AST 29 27 ALT 26 25 Triglycerides 108 98 Cholesterol 177 146 LDL Cholesterol, Calc 103 H 84 HDL Cholesterol 53 43 25-OH Vitamin D Total 57.0 TSH 0.90 Ur Specific [place] 1.015 Urine Protein Negative Urine Glucose (UA) Negative Urine Blood Negative Urine Nitrite Negative Ur Leukocyte Esterase Negative Assessment and Plan Assessment & Plan (1) Pure hypercholesterolemia: Code(s): E78.00 - Pure hypercholesterolemia, unspecified Plan: Results of his labs done last week reviewed and discussed with patient Reinforced low cholesterol diet Continue Atorvastatin 40 mg QD Will recheck his labs and fasting lipids in 4 months for follow up (2) Benign essential hypertension: Code(s): I10 - Essential (primary) hypertension Plan: Reinforced low sodium diet - goal is systolic BP of 120 mm or less Continue Atenolol 50 mg QD and HCTZ 25 mg QD (3) Impaired fasting glucose: Code(s): R73.01 - Impaired fasting glucose Plan: His HgbA1c remains normal at 5.4% on his recent labs done last week Reinforced low calorie diet/exercise as tolerated (4) GERD (gastroesophageal reflux disease): Code(s): K21.9 - Gastro-esophageal reflux disease without esophagitis Qualifiers: Esophagitis presence: without esophagitis Qualified Code(s): K21.9 - Gastro-esophageal reflux disease without esophagitis Plan: Dietary restrictions reinforced Continue Omeprazole 40 mg QAM (5) Vitamin D deficiency: Code(s): E55.9 - Vitamin D deficiency, unspecified Plan: Continue Vitamin D3 2000 units QD (6) Obesity (BMI 30-39.9): Code(s): E66.9 - Obesity, unspecified Plan: Reinforced diet/exercise as tolerated/lose weight Plan Follow up in 4 months Orders: Orders UA CC w/rflx Micro + Cult 4 Months R30.0 - Dysuria Complete Blood Count Auto Diff 4 Months D64.9 - Anemia, unspecified Lipid Panel 4 Months E78.00 - Pure hypercholesterolemia, unspecified Comprehensive [place]. Panel Fast 4 Months E78.00 - Pure hypercholesterolemia, unspecified Hemoglobin A1c 4 Months R73.01 - Impaired fasting glucose Coding Level of Care Code Est Pt Level 4 (65508) Diagnoses Pure hypercholesterolemia E78.00 Benign essential hypertension I10 Impaired fasting glucose R73.01 Gastroesophageal reflux disease without esophagitis K21.9 Esophagitis presence: without esophagitis Vitamin D deficiency E55.9 Obesity (BMI 30-39.9) E66.9
== END 2024-03-15 10:21 | disposition home or self-care (01) ==
PROVIDERS: PCP Internal Medicine; Visit Provider Internal Medicine
DX: E78.00 Pure hypercholesterolemia, unspecified (principal); E66.9 Obesity, unspecified; Z68.31 Body mass index [BMI] 31.0-31.9, adult; I10 Essential (primary) hypertension; R73.01 Impaired fasting glucose; K21.9 Gastro-esophageal reflux disease without esophagitis; E55.9 Vitamin D deficiency, unspecified
CPT/HCPCS: 99214

== ENCOUNTER 2024-07-17 07:56 | Outpatient (REF) | payer OTHER, SELFPAY ==
[2024-07-17 08:07] LABS: MANUAL DIFF FLAG NO
[2024-07-17 08:37] LABS: Basophils Percent Auto 0.4 % (0-2); Eosinophils Absolute Auto 0.1 X10*3/uL (0.0-0.4); Eosinophils Percent Auto 2.1 % (0-4); Hematocrit 45.2 % (42.0-52.0); Hemoglobin 15.6 g/dl (14.0-18.0); Imm Gran Abs Auto 0.02 X10*3/uL (0.00-0.03); Imm Gran Pct Auto 0.3 % (0.0-0.4); Lymphocytes Absolute Auto 1.5 X10*3/uL (1.2-4.9); Lymphocytes Percent Auto 22.5 % (20-40); Mean Corpuscular HGB Conc 34.5 g/dl (31.0-36.0); Mean Corpuscular Hemoglobin 28.6 pg (27.0-33.0); Mean Corpuscular Volume 82.9 fL (80.0-98.0); Mean Platelet Volume 10.1 fL (9.4-12.4); Monocytes Absolute Auto 0.6 X10*3/uL (0.1-1.2); Monocytes Percent Auto 8.3 % (2-11); Neutrophils Absolute Auto 4.5 x10*3/uL (2.0-8.3); Neutrophils Percent Auto 66.4 % (45-73); Platelet Count 237 X10*3/uL (160-400); Red Blood Count 5.45 X10*6/uL (4.60-5.80); Red Cell Distribution Width 13.6 % (11.0-16.0); White Blood Count 6.7 X10*3/uL (4.8-10.8)
[2024-07-17 08:52] LABS: Appearance Urine Clear; Color Urine Yellow; Glucose Urine UA Negative (Negative); Leukocyte Esterase Urine Negative (Negative); Nitrite Urine Negative (Negative); PH 6.5 (5.0-9.0); Urine Blood Negative (Negative); Urine Ketones 15 mg/dL (Negative); Urine Protein Negative (Neg-Trace)
[2024-07-17 08:57] LABS: Estimated Average Glucose 114 mg/dL; Hemoglobin A1C 146.4168 umol/L; Hemoglobin A1c % 5.6 % (<6.0); Total Hemoglobin (HGBA1C) 3907.8793 umol/L
[2024-07-17 09:25] LABS: Alanine Aminotransferase 35 U/L (0-40); Albumin Level 4.3 g/dL (3.5-5.0); Alkaline Phosphatase 85 U/L (39-117); Anion Gap 12 (12-20); Aspartate Amino Transferase 34 U/L (5-37); Bilirubin Total 1.4 mg/dL (0.0-1.0); Blood Urea Nitrogen 19 mg/dL (9-16); Calcium 9.7 mg/dL (8.4-10.2); Carbon Dioxide 25 mmol/L (22-29); Chloride 109 mmol/L (96-108); Cholesterol 188 mg/dL (<200); Estimated Glomerular Filt Rate > 60; Glucose Fasting 98 mg/dL (60-99); HDL Cholesterol 52 mg/dL (>40); LDL Cholesterol Calculated 117 mg/dL (<100); Potassium 4.2 mmol/L (3.3-5.1); Sodium 142 mmol/L (135-145); Total Protein 7.3 g/dL (6.5-8.0); Triglycerides 98 mg/dL (<150)
== END 2024-07-17 07:57 | disposition home or self-care (01) ==
LOC: HO.LAB 07:56
PROVIDERS: PCP Internal Medicine; Visit Provider Internal Medicine
DX: R30.0 Dysuria (principal); D64.9 Anemia, unspecified; E78.00 Pure hypercholesterolemia, unspecified; R73.01 Impaired fasting glucose
CPT/HCPCS: 36415; 80053; 80061; 81003; 83036; 85025

== ENCOUNTER 2024-07-25 08:51 | Outpatient (AMB) | payer OTHER, SELFPAY ==
[2024-07-25 08:59] VITALS: BP 136/84; PULSE 66; TEMP 36.5; O2SAT 94; BMI 31.0
--- NOTE | 2024-07-25 08:59 | MHC.PC.OV ---
Vital Signs 07/25/24 08:59 Height 5 ft 11 in Weight 222 lb 4 oz BMI 31.0 BP 136/84 Blood Pressure Location Lt brachial Position Sitting Pulse 66 Pulse Source Pulse Oximeter Temp 97.7 F Temp Source Oral Pulse Oximetry (%) 94 Oxygen Delivery Method Room Air Intake Visit Reasons: follow up HTN, hyperlipidemia, GERD, IFG Juice Tester Required: No Accompanied by: Self / Same As Patient Allergies No Known Allergies Allergy (Verified 08/06/24 04:23) Medication List - Last Reconciled 07/25/24 by VIOLA Doe atenolol 50 mg PO DAILY 90 days atorvastatin 40 mg PO DAILY cholecalciferol (vitamin D3) 50 mcg PO DAILY 90 days hydrochlorothiazide 25 mg PO DAILY ibuprofen 200 mg PO Q12H PRN omeprazole 40 mg PO QAM 90 days Tobacco use date assessed: 07/25/24 Dental Screening Dental Screen Date: 07/25/24 Did you have a dental visit in the last 12 months?: No Did you have a dental problem in the last 6 months where you did not have access to dental care?: No Was dental information given to patient?: Patient has dentist HPI follow up HTN, hyperlipidemia, GERD, IFG HPI Details The patient is a 64-year-old male significant for obesity, impaired fasting glucose, GERD,. Hypercholesterolemia and benign essential hypertension Patient is presenting today for follow-up appointment He had labs done recently and wants to discuss results He denies chest pain, shortness of breath, dizziness, heart palpitation, denies abdominal pain or change in bowel habits PFSH Medical History Vitamin D deficiency Elevated bilirubin Obesity (BMI 30-39.9) Impaired fasting glucose GERD (gastroesophageal reflux disease) Pure hypercholesterolemia Benign essential hypertension Surgical History No pertinent past surgical history Family History Father Hypertension CVD (cardiovascular disease) Mother Hypertension Cancer Breast cancer Ovarian cancer Daughter In good health Sister In good health Sister In good health Sister In good health Brother In good health Social History Household Members: None Housing: House Alcohol intake: former Patient Tobacco Use Status: Former Tobacco user e-Cigarette/Vaping Use: Never Used Second Hand Smoke Exposure: Yes service: No Current occupational status: employed Current occupation: self employed- remodeling Cognitive needs: No Hearing needs: No Vision needs: No Questionnaire PHQ-9 Over the last 2 weeks, how often have you been bothered by any of the following problems? 1. Little interest or pleasure in doing things: not at all 2. Feeling down, depressed, or hopeless: not at all 3. Trouble falling or staying asleep, or sleeping too much: not at all 4. Feeling tired or having little energy: not at all 5. Poor appetite or overeating: not at all 6. Feeling bad about yourself - or that you are a failure or have let yourself or your family down: not at all 7. Trouble concentrating on things, such as reading the newspaper or watching television: not at all 8. Moving or speaking so slowly that other people could have noticed. Or the opposite - being so fidgety or restless that you have been moving around a lot more than usual: not at all 9. Thoughts that you would be better off or of hurting yourself in some way: not at all Total score: 0 Depression Screening Interpretation: Negative Depression Screening Done: Yes 35976 - PHQ-9 Billing: Yes Source: Developed by Drs. Bhavin Gongora, Scarlett Ramírez, Pola Fairchild and colleagues, with an educational allyson from [employer]. Thrive Questionnaire Date Thrive assessed: 07/25/24 I am a: Patient What is your living situation today?: I have a steady place to live Within the past 12 months, did the food you bought not last and you didn't have the money to get more?: Never true Within the past 12 months, did you worry whether your food would run out before you got money to buy more?: Never true Do you have trouble paying for medicines?: No Do you have trouble getting transportation to medical appointments?: No Do you have trouble paying your heating and electricity bill?: No Do you have trouble taking care of your child, family member or friend?: No Do you have trouble with day-to-day activities such as bathing, preparing meals, shopping, managing finances, etc.?: No Are you currently unemployed and looking for a job?: No Are you interested in more education?: No Please select the resources that you would like help with: None Currently or been in a relationship where the following occur: No concerns reported THRIVE Score: 0 AUDIT C Alcohol Use Questionnaire (AUDIT-C) 1. How often do you have a drink containing alcohol?: Never 3. How often do you have six or more drinks on one occasion?: Never Total Score: 0 Score Reviewed/Action Taken: Yes LEYLA-7 AMB Questionnaire LEYLA-7 Date LEYLA - 7 assessed: 07/25/24 Feeling nervous, anxious, or on edge: 0 = Not at all Not being able to stop or control worryin = Not at all Worrying too much about different things: 0 = Not at all Trouble relaxin = Not at all Being so restless that it is hard to sit still: 0 = Not at all Becoming easily annoyed or irritable: 0 = Not at all Feeling afraid as if something awful might happen: 0 = Not at all Total LEYLA-7 score (0-4 normal; 5-9 mild; 10-14 moderate; 15-21 severe): 0 Source: Developed by Drs. Bhavin Gongora, Scarlett Ramírez, Pola Fairchild and colleagues, with an educational allyson from [employer]. LEYLA-7 Assessment Billing LEYLA-7 Assessment Tool: LEYLA-7 Assessment 40611 Review of Systems Const Details: Const Denies chills, Denies fatigue, Denies fever(s), Denies headache(s) and Denies weakness ENT Denies dizziness and Denies headache(s) Card Denies chest pain, Denies lightheadedness, Denies dyspnea and Denies other (Palpitations) Resp Denies cough, Denies dyspnea, Denies wheezing and Denies other ( shortness of breath) GI Denies abdominal pain, Denies melena, Denies hematochezia, Denies change in bowel habits, infrequent heartburn with certain foods and Denies nausea Denies hematuria and Denies dysuria Musc Denies abnormal gait, Denies myalgias, Denies arthralgias, Denies numbness and Denies tingling Skin/Breast Denies rash, Denies unusual bruising and Denies wounds Neuro Denies abnormal gait, Denies dizziness, Denies headache(s), Denies memory loss, Denies numbness, Denies Sensory deficit (Neuro), Denies tingling and Denies weakness Psych Denies anxiety, Denies depression, Denies memory loss Endo Denies cold intolerance, Denies fatigue, Denies heat intolerance, Denies polydipsia and Denies polyuria Aller/Immun Denies wheezing Physical exam (Primary Care) Vital Signs: Last Vital Signs Temp 97.7 F 07/25/24 08:59 Pulse 66 07/25/24 08:59 BP 136/84 07/25/24 08:59 Pulse Ox 94 07/25/24 08:59 Oxygen Delivery Method Room Air 07/25/24 08:59 BMI result Body Mass Index 31.0 Tobacco/Smoking Status: Tobacco use Status Tobacco use date assessed 07/25/24 07/25/24 09:01 Patient Tobacco Use Status Former Tobacco user 07/25/24 09:01 e-Cigarette/Vaping Use Never Used 07/25/24 09:01 PHQ-9: PHQ-9 Score PHQ-9: Total score 0 07/25/24 09:10 Depression Screening Interpretation: Negative Thrive Assessment: Date of Thrive Assessment Date Thrive assessed 07/25/24 07/25/24 09:01 Currently or been in a relationship where the following occur: No concerns reported Const Other: General: no acute distress and well developed Nutritional Appearance: well nourished Orientation/consciousness: patient oriented x3 HENMT Head: Yes normocephalic and Yes atraumatic Eyes General: appearance normal, both eyes and all related structures Pupils: Equal, round and reactive pupils present EOM: EOMs intact bilaterally Resp Effort & Inspection: normal respiratory effort Auscultation: clear to auscultation bilaterally Cardio Rate: regular rate Rhythm: regular rhythm Heart sounds: S1 normal heart sound present, S2 normal heart sound present, no gallops, no murmurs and no rubs GI Palpation (GI): No Abdominal aortic bruit present, Soft to palpation, nontender, No hepatosplenomegaly present and No Rebound tenderness present Auscultation: normal bowel sounds General: Yes no CVA tenderness Back/Spine/Pelvis Back: no CVA tenderness Cervical Spine: cervical ROM normal and No Cervical spine tenderness Thoracic/Lumbar Spine: thoraco-lumbar ROM normal, No pain with thoraco-lumbar ROM, No thoracic spinal tenderness and No lumbar spinal tenderness Extrem General: Yes normal to inspection, No edema and No calf tenderness Skin General: warm and dry. Normal skin color. Normal skin turgor Lesions: no lesions Rashes: no rashes Trauma: no lacerations or abrasions Wounds: no wounds Nails: normal Neuro General: patient oriented x3, gait normal and no focal neuro deficit Cranial nerves: Yes Equal, round and reactive pupils present Cognition (Neuro): normal cognition Gait exam (Neuro): Normal gait present Sensory Exam: No Sensory deficit (Neuro) Psych Appearance: grossly normal Affect: normal affect Attitude: cooperative Thought process: Normal thought process present Results Reviewed Results Reviewed: Laboratory Tests 07/17/24 07/17/24 08:02 08:05 WBC 6.7 RBC 5.45 Hgb 15.6 Hct 45.2 Plt Count 237 Sodium 142 Potassium 4.2 Chloride 109 H BUN 19 H Creatinine 0.97 Estimated GFR > 60 Fasting Glucose 98 Hemoglobin A1c % 5.6 AST 34 ALT 35 Alkaline Phosphatase 85 Triglycerides 98 Cholesterol 188 LDL Cholesterol, Calc 117 H HDL Cholesterol 52 Urine Color Yellow Urine Appearance Clear Urine pH 6.5 Ur Specific [place] 1.020 Urine Protein Negative Urine Glucose (UA) Negative Urine Ketones 15 Urine Blood Negative Urine Nitrite Negative Ur Leukocyte Esterase Negative Coding Level of Care Code Est Pt Level 4 (80098) Diagnoses Pure hypercholesterolemia E78.00 Benign essential hypertension I10 Impaired fasting glucose R73.01 Gastroesophageal reflux disease without esophagitis K21.9 Esophagitis presence: without esophagitis Vitamin D deficiency E55.9 Obesity (BMI 30-39.9) E66.9 Additional Codes LEYLA-7 Assessment Billing - LEYLA-7 Assessment Tool: LEYLA-7 Assessment 89751 ([id number]) PHQ-9 - 40672 - PHQ-9 Billing: Yes ([id number]) Assessment & Plan Assessment & Plan (1) Pure hypercholesterolemia: Code(s): E78.00 - Pure hypercholesterolemia, unspecified Category: Medical Plan: Cautioned patient that his LDL increased from prior study; and is currently 117 Continue atorvastatin 40 mg daily Reinforced a diet low in cholesterol and activity as tolerated (2) Benign essential hypertension: Code(s): I10 - Essential (primary) hypertension Category: Medical Plan: Blood pressure is 136/84 today in office Continue atenolol 50 mg p.o. daily Maintain a diet low in sodium (3) Impaired fasting glucose: Code(s): R73.01 - Impaired fasting glucose Category: Medical Plan: reinforced low sugar/carbohydrates diet We will repeat labs in 4 months (4) GERD (gastroesophageal reflux disease): Code(s): K21.9 - Gastro-esophageal reflux disease without esophagitis Category: Medical Qualifiers: Esophagitis presence: without esophagitis Qualified Code(s): K21.9 - Gastro-esophageal reflux disease without esophagitis Plan: reinforced dietary restriction Continue omeprazole 40 mg daily (5) Vitamin D deficiency: Code(s): E55.9 - Vitamin D deficiency, unspecified Category: Medical Plan: Continue cholecalciferol 50 mcg p.o. daily We will check labs in 4 months (6) Obesity (BMI 30-39.9): Code(s): E66.9 - Obesity, unspecified Category: Medical Plan: Diet/exercise discussed in detail Encouraged to exercise for at least 30 minutes a day/5 days a week Healthy eating discussed. Encouraged to eat fruits/vegetables, protein-fish/baked chicken, and to avoid salty/fried foods, sweets, caffeine and carbohydrates. Encouraged to increase water intake 6-8 glasses a day Plan Follow in 4 months, get blood work done about a week before appt I personally spent 28 minutes reviewing the chart, caring for the patient and documenting after the visit. Orders: Orders Complete Blood Count Auto Diff 4 Months L02.91 - Cutaneous abscess, unspecified, E66.9 - Obesity, unspecified, R73.01 - Impaired fasting glucose, E78.00 - Pure hypercholesterolemia, unspecified, I10 - Essential (primary) hypertension Comprehensive [place]. Panel Fast 4 Months L02.91 - Cutaneous abscess, unspecified, E66.9 - Obesity, unspecified, R73.01 - Impaired fasting glucose, E78.00 - Pure hypercholesterolemia, unspecified, I10 - Essential (primary) hypertension Hemoglobin A1c 4 Months L02.91 - Cutaneous abscess, unspecified, E66.9 - Obesity, unspecified, R73.01 - Impaired fasting glucose, E78.00 - Pure hypercholesterolemia, unspecified, I10 - Essential (primary) hypertension Vitamin D 25-OH Total 4 Months L02.91 - Cutaneous abscess, unspecified, E66.9 - Obesity, unspecified, R73.01 - Impaired fasting glucose, E78.00 - Pure hypercholesterolemia, unspecified, I10 - Essential (primary) hypertension UA CC w/rflx Micro + Cult 4 Months L02.91 - Cutaneous abscess, unspecified, E66.9 - Obesity, unspecified, R73.01 - Impaired fasting glucose, E78.00 - Pure hypercholesterolemia, unspecified, I10 - Essential (primary) hypertension Lipid Panel 4 Months L02.91 - Cutaneous abscess, unspecified, E66.9 - Obesity, unspecified, R73.01 - Impaired fasting glucose, E78.00 - Pure hypercholesterolemia, unspecified, I10 - Essential (primary) hypertension
== END 2024-07-25 09:28 | disposition home or self-care (01) ==
PROVIDERS: PCP Internal Medicine
DX: E78.00 Pure hypercholesterolemia, unspecified (principal); I10 Essential (primary) hypertension; E66.9 Obesity, unspecified; Z68.31 Body mass index [BMI] 31.0-31.9, adult; R73.01 Impaired fasting glucose; K21.9 Gastro-esophageal reflux disease without esophagitis; E55.9 Vitamin D deficiency, unspecified

== ENCOUNTER → 2024-07-25 08:51 | Outpatient (BNVA) | payer OTHER, SELFPAY | PROVIDERS: PCP Internal Medicine | DX: I10 Essential (primary) hypertension (principal); E78.00 Pure hypercholesterolemia, unspecified; K21.9 Gastro-esophageal reflux disease without esophagitis; R73.01 Impaired fasting glucose; E55.9 Vitamin D deficiency, unspecified; L02.91 Cutaneous abscess, unspecified; E66.9 Obesity, unspecified; Z68.31 Body mass index [BMI] 31.0-31.9, adult | CPT/HCPCS: 96127; 99212 ==

== ENCOUNTER 2024-11-16 07:12 | Outpatient (REF) | payer OTHER, SELFPAY ==
[2024-11-16 07:36] LABS: MANUAL DIFF FLAG NO
[2024-11-16 07:55] LABS: Appearance Urine Clear; Color Urine Dark Yellow; Glucose Urine UA Negative (Negative); Leukocyte Esterase Urine Negative (Negative); Nitrite Urine Negative (Negative); PH 5.5 (5.0-9.0); Specific Gravity - Urine >= 1.030 (1.005-1.025); Urine Blood Negative (Negative); Urine Ketones 80 mg/dL (Negative); Urine Protein Trace mg/dL (Neg-Trace)
[2024-11-16 07:56] LABS: Basophils Percent Auto 0.6 % (0-2); Eosinophils Absolute Auto 0.1 X10*3/uL (0.0-0.4); Eosinophils Percent Auto 1.7 % (0-4); Hematocrit 47.3 % (42.0-52.0); Hemoglobin 16.5 g/dl (14.0-18.0); Imm Gran Abs Auto 0.02 X10*3/uL (0.00-0.03); Imm Gran Pct Auto 0.3 % (0.0-0.4); Lymphocytes Absolute Auto 1.8 X10*3/uL (1.2-4.9); Mean Corpuscular HGB Conc 34.9 g/dl (31.0-36.0); Mean Corpuscular Hemoglobin 28.7 pg (27.0-33.0); Mean Corpuscular Volume 82.4 fL (80.0-98.0); Mean Platelet Volume 10.4 fL (9.4-12.4); Monocytes Absolute Auto 0.9 X10*3/uL (0.1-1.2); Monocytes Percent Auto 13.1 % (2-11); Neutrophils Absolute Auto 3.7 x10*3/uL (2.0-8.3); Neutrophils Percent Auto 56.3 % (45-73); Platelet Count 280 X10*3/uL (160-400); Red Blood Count 5.74 X10*6/uL (4.60-5.80); Red Cell Distribution Width 13.9 % (11.0-16.0); White Blood Count 6.5 X10*3/uL (4.8-10.8)
[2024-11-16 08:06] LABS: Estimated Average Glucose 111 mg/dL; Hemoglobin A1c % 5.5 % (<6.0); Total Hemoglobin (HGBA1C) 4340.0381 umol/L
[2024-11-16 08:32] LABS: Alanine Aminotransferase 24 U/L (0-40); Albumin Level 4.7 g/dL (3.5-5.0); Alkaline Phosphatase 98 U/L (39-117); Anion Gap 17 (12-20); Aspartate Amino Transferase 38 U/L (5-37); Bilirubin Total 1.7 mg/dL (0.0-1.0); Blood Urea Nitrogen 20 mg/dL (9-16); Calcium 10.1 mg/dL (8.4-10.2); Carbon Dioxide 25 mmol/L (22-29); Chloride 102 mmol/L (96-108); Cholesterol 174 mg/dL (<200); Estimated Glomerular Filt Rate > 60; Glucose Fasting 88 mg/dL (60-99); HDL Cholesterol 49 mg/dL (>40); LDL Cholesterol Calculated 112 mg/dL (<100); Potassium 3.2 mmol/L (3.3-5.1); Sodium 141 mmol/L (135-145); Total Protein 7.9 g/dL (6.5-8.0); Triglycerides 65 mg/dL (<150)
[2024-11-16 08:55] LABS: Vitamin D 25-OH Total 51.5 ng/mL (>30)
== END 2024-11-16 07:13 | disposition home or self-care (01) ==
LOC: HO.LAB 07:12
PROVIDERS: PCP Internal Medicine
DX: L02.91 Cutaneous abscess, unspecified (principal); E66.9 Obesity, unspecified; R73.01 Impaired fasting glucose; E78.00 Pure hypercholesterolemia, unspecified; I10 Essential (primary) hypertension
CPT/HCPCS: 36415; 80053; 80061; 81003; 82306; 83036; 85025

== ENCOUNTER 2024-11-23 09:25 | Outpatient (AMB) | payer OTHER, SELFPAY ==
[2024-11-23 09:31] VITALS: BP 112/68; PULSE 66; O2SAT 98; BMI 30.9
--- NOTE | 2024-11-23 09:31 | A.OFFPC_ITS ---
Vital Signs 11/23/24 09:31 Height 5 ft 11 in Weight 221 lb 4 oz BMI 30.9 BP 112/68 Blood Pressure Location Lt brachial Position Sitting Pulse 66 Pulse Source Pulse Oximeter Pulse Oximetry (%) 98 Oxygen Delivery Method Room Air Intake Visit Reasons: htn/IFG/HLD Park Aide Required: No Accompanied by: Self / Same As Patient Allergies No Known Allergies Allergy (Verified 11/23/24 09:46) Medication List - Last Reconciled 11/23/24 by Gennaro Nathan MD atenolol 50 mg PO DAILY 90 days atorvastatin 40 mg PO DAILY cholecalciferol (vitamin D3) 50 mcg PO DAILY 90 days hydrochlorothiazide 25 mg PO DAILY ibuprofen 200 mg PO Q12H PRN omeprazole 40 mg PO QAM 90 days Tobacco use date assessed: 11/23/24 Dental Screening Dental Screen Date: 11/23/24 Did you have a dental visit in the last 12 months?: No Did you have a dental problem in the last 6 months where you did not have access to dental care?: No Was dental information given to patient?: Patient has dentist HPI htn/IFG/HLD HPI Details Patient comes in today for his follow up visit States that he feels okay He denies any headaches or dizziness Denies any chest pains, no SOB No nausea/vomiting, no abdominal pain No change in bowel habits noted Needs his Omeprazole Rx refilled He had his follow up labs done last week - to discuss his results [facility] Medical History Vitamin D deficiency Elevated bilirubin Obesity (BMI 30-39.9) Impaired fasting glucose GERD (gastroesophageal reflux disease) Pure hypercholesterolemia Benign essential hypertension Surgical History No pertinent past surgical history Family History Father Hypertension CVD (cardiovascular disease) Mother Hypertension Cancer Breast cancer Ovarian cancer Daughter In good health Sister In good health Sister In good health Sister In good health Brother In good health Social History Household Members: None Housing: House Alcohol intake: former Patient Tobacco Use Status: Former Tobacco user e-Cigarette/Vaping Use: Never Used Second Hand Smoke Exposure: Yes service: No Current occupational status: employed Current occupation: self employed- remodeling Cognitive needs: No Hearing needs: No Vision needs: No Questionnaire PHQ-9 Over the last 2 weeks, how often have you been bothered by any of the following problems? 1. Little interest or pleasure in doing things: not at all 2. Feeling down, depressed, or hopeless: not at all 3. Trouble falling or staying asleep, or sleeping too much: several days 4. Feeling tired or having little energy: not at all 5. Poor appetite or overeating: several days 6. Feeling bad about yourself - or that you are a failure or have let yourself or your family down: not at all 7. Trouble concentrating on things, such as reading the newspaper or watching television: not at all 8. Moving or speaking so slowly that other people could have noticed. Or the opposite - being so fidgety or restless that you have been moving around a lot more than usual: not at all 9. Thoughts that you would be better off or of hurting yourself in some way: not at all Total score: 2 Depression Screening Interpretation: Negative Depression Screening Done: Yes 87588 - PHQ-9 Billing: Yes Source: Developed by Drs. Bhavin Gongora, Scarlett Ramírez, Pola Fairchild and colleagues, with an educational allyson from [employer] Thrive Questionnaire Date Thrive assessed: 11/23/24 I am a: Patient What is your living situation today?: I have a steady place to live Within the past 12 months, did the food you bought not last and you didn't have the money to get more?: Never true Within the past 12 months, did you worry whether your food would run out before you got money to buy more?: Never true Do you have trouble paying for medicines?: No Do you have trouble getting transportation to medical appointments?: No Do you have trouble paying your heating and electricity bill?: I choose not to answer this question Do you have trouble taking care of your child, family member or friend?: No Do you have trouble with day-to-day activities such as bathing, preparing meals, shopping, managing finances, etc.?: No Are you currently unemployed and looking for a job?: No Are you interested in more education?: No Please select the resources that you would like help with: None Currently or been in a relationship where the following occur: I choose not to answer THRIVE Score: 0 AUDIT C Alcohol Use Questionnaire (AUDIT-C) 1. How often do you have a drink containing alcohol?: Never 3. How often do you have six or more drinks on one occasion?: Never Total Score: 0 Score Reviewed/Action Taken: Yes LEYLA-7 AMB Questionnaire LEYLA-7 Date LEYLA - 7 assessed: 11/23/24 Feeling nervous, anxious, or on edge: 0 = Not at all Not being able to stop or control worryin = Not at all Worrying too much about different things: 0 = Not at all Trouble relaxin = Not at all Being so restless that it is hard to sit still: 0 = Not at all Becoming easily annoyed or irritable: 0 = Not at all Feeling afraid as if something awful might happen: 0 = Not at all Total LEYLA-7 score (0-4 normal; 5-9 mild; 10-14 moderate; 15-21 severe): 0 Source: Developed by Drs. Bhavin Gongora, Scarlett Ramírez, Pola Fairchild and colleagues, with an educational allyson from [employer] Review of Systems Const Denies chills, Denies fatigue, Denies fever(s) and Denies headache(s) ENT Denies dysphagia, Denies dizziness, Denies otalgia, Denies headache(s), Denies neck pain, Denies odynophagia and Denies sore throat Card Denies chest pain, Denies palpitations and Denies dyspnea Resp Denies chest congestion, Denies cough and Denies dyspnea GI Denies abdominal pain, Denies constipation, Denies dysphagia, Denies heartburn, Denies diarrhea, Denies nausea, Denies odynophagia and Denies vomiting Denies dysuria, Denies nocturia and Denies urinary frequency Musc Denies back pain, Denies arthralgias and Denies neck pain Skin/Breast Denies rash Neuro Denies dizziness and Denies headache(s) Psych Denies anxiety and Denies depression Endo Denies fatigue and Denies palpitations Physical exam (Primary Care) Vital Signs: Last Vital Signs Pulse 66 11/23/24 09:31 BP 112/68 11/23/24 09:31 Pulse Ox 98 11/23/24 09:31 Oxygen Delivery Method Room Air 11/23/24 09:31 BMI result Body Mass Index 30.9 Tobacco/Smoking Status: Tobacco use Status Tobacco use date assessed 11/23/24 11/23/24 09:35 Patient Tobacco Use Status Former Tobacco user 11/23/24 09:35 e-Cigarette/Vaping Use Never Used 11/23/24 09:35 PHQ-9: PHQ-9 Score PHQ-9: Total score 2 11/23/24 09:35 Depression Screening Interpretation: Negative Thrive Assessment: Date of Thrive Assessment Date Thrive assessed 11/23/24 11/23/24 09:35 Currently or been in a relationship where the following occur: I choose not to answer Const General: no acute distress and alert HENMT Ears: TM's normal bilaterally and EAC's normal Throat: Yes posterior oropharynx normal and Yes tonsils normal (no TP congestion) Neck Neck: Yes supple and No lymphadenopathy Thyroid: Thyroid normal Resp Auscultation: clear to auscultation bilaterally, no rales and no wheezes Cardio Rate: regular rate Rhythm: regular rhythm Heart sounds: no murmurs GI Palpation (GI): Soft to palpation and nontender Auscultation: normal bowel sounds General: Yes no CVA tenderness Back/Spine/Pelvis Back: no CVA tenderness Thoracic/Lumbar Spine: No lumbar spinal tenderness Skin Rashes: no rashes Extrem General: Yes no clubbing, cyanosis or edema Results Reviewed Results Reviewed: Laboratory Tests 03/06/24 11/16/24 11/16/24 08:30 07:31 07:35 WBC 6.5 Hgb 16.5 Hct 47.3 Plt Count 280 Sodium 141 Potassium 3.2 L D Creatinine 1.20 Estimated GFR > 60 Fasting Glucose 88 Hemoglobin A1c % 5.5 Calcium 10.1 Total Bilirubin 1.7 H AST 38 H ALT 24 Triglycerides 65 Cholesterol 174 LDL Cholesterol, Calc 112 H HDL Cholesterol 49 25-OH Vitamin D Total 51.5 TSH 0.90 Ur Specific [place] >= 1.030 H Urine Protein Trace Urine Glucose (UA) Negative Urine Blood Negative Urine Nitrite Negative Ur Leukocyte Esterase Negative Coding Level of Care Code Est Pt Level 4 (27633) Complex EM visit Add On G2211 Diagnoses Pure hypercholesterolemia E78.00 Benign essential hypertension I10 Impaired fasting glucose R73.01 Gastroesophageal reflux disease without esophagitis K21.9 Esophagitis presence: without esophagitis Vitamin D deficiency E55.9 Elevated bilirubin R17 Hypokalemia E87.6 Obesity (BMI 30-39.9) E66.9 Additional Codes PHQ-9 - 47522 - PHQ-9 Billing: Yes ([id number]) Assessment & Plan Assessment & Plan (1) Pure hypercholesterolemia: Code(s): E78.00 - Pure hypercholesterolemia, unspecified Category: Medical Plan: Results of his labs done last week reviewed and discussed with patient Reinforced low cholesterol diet Continue Atorvastatin 40 mg QD Will recheck his labs and fasting lipids in 4 months for follow up (2) Benign essential hypertension: Code(s): I10 - Essential (primary) hypertension Category: Medical Plan: Reinforced low sodium diet - goal is systolic BP of 120 mm or less Continue Atenolol 50 mg QD and HCTZ 25 mg QD (3) Impaired fasting glucose: Code(s): R73.01 - Impaired fasting glucose Category: Medical Plan: His HgbA1c remains normal at 5.5% on his recent labs done last week; was previously at 5.4% a few months ago Reinforced low calorie diet/exercise as tolerated (4) GERD (gastroesophageal reflux disease): Code(s): K21.9 - Gastro-esophageal reflux disease without esophagitis Category: Medical Qualifiers: Esophagitis presence: without esophagitis Qualified Code(s): K21.9 - Gastro-esophageal reflux disease without esophagitis Plan: Dietary restrictions reinforced Continue Omeprazole 40 mg Q AM (5) Vitamin D deficiency: Code(s): E55.9 - Vitamin D deficiency, unspecified Category: Medical Plan: Continue Vitamin D3 2000 units QD (6) Elevated bilirubin: Code(s): R17 - Unspecified jaundice Category: Medical Plan: His total bilirubin remains elevated on his recent labs Will check his direct bilirubin level in a few months for further evaluation Will also need to consider abdominal US if his bilirubin level continues to stay elevated and his total bilirubin level also comes back elevated in a few months (7) Hypokalemia: Code(s): E87.6 - Hypokalemia Category: Medical Plan: He is advised that his serum potassium level is low on his recent labs and that this is likely a result of his oral diuretic Rx Have advised him to start eating a banana daily to help replenish his potassium level and if this is not enough and his potassium level remains low on his next lab draw, will then need to consider starting him on oral potassium supplements (8) Obesity (BMI 30-39.9): Code(s): E66.9 - Obesity, unspecified Category: Medical Plan: Reinforced diet/exercise as tolerated/lose weight Plan Follow up in 4 months Orders: Orders Comprehensive Jones. Panel Fast 4 Months E78.00 - Pure hypercholesterolemia, unspecified TSH reflex Free T4 4 Months E78.00 - Pure hypercholesterolemia, unspecified UA CC w/rflx Micro + Cult 4 Months R30.0 - Dysuria Vitamin D 25-OH Total 4 Months E55.9 - Vitamin D deficiency, unspecified Hemoglobin A1c 4 Months R73.01 - Impaired fasting glucose Complete Blood Count Auto Diff 4 Months D64.9 - Anemia, unspecified Lipid Panel 4 Months E78.00 - Pure hypercholesterolemia, unspecified Magnesium 4 Months E83.42 - Hypomagnesemia Bilirubin Direct 4 Months R17 - Unspecified jaundice Medications: Refilled omeprazole 40 mg PO QAM 90 days 90 caps 3RF
== END 2024-11-23 09:56 | disposition home or self-care (01) ==
LOC: HO.HMCH 09:25
PROVIDERS: PCP Internal Medicine; Visit Provider Internal Medicine
DX: E78.00 Pure hypercholesterolemia, unspecified (principal); I10 Essential (primary) hypertension; E66.9 Obesity, unspecified; Z68.30 Body mass index [BMI] 30.0-30.9, adult; R73.01 Impaired fasting glucose; K21.9 Gastro-esophageal reflux disease without esophagitis; E55.9 Vitamin D deficiency, unspecified; R17 Unspecified jaundice; E87.6 Hypokalemia

== ENCOUNTER → 2024-11-23 09:25 | Outpatient (BNVA) | payer OTHER, SELFPAY | PROVIDERS: PCP Internal Medicine; Visit Provider Internal Medicine | DX: I10 Essential (primary) hypertension (principal); E78.00 Pure hypercholesterolemia, unspecified; R73.01 Impaired fasting glucose; K21.9 Gastro-esophageal reflux disease without esophagitis; E55.9 Vitamin D deficiency, unspecified; R17 Unspecified jaundice; E87.6 Hypokalemia; E66.9 Obesity, unspecified; R30.0 Dysuria; Z68.30 Body mass index [BMI] 30.0-30.9, adult; Z79.899 Other long term (current) drug therapy | CPT/HCPCS: 96127; 99212 ==

== ENCOUNTER 2025-04-06 07:41 | Outpatient (REF) | payer OTHER, SELFPAY ==
--- OUTSIDE RECORDS SUMMARY | 2025-04-06 07:45 | XMS_ITS | Patient Health Record ---
Author Organization [facility] Address [address] [place] [address] Care Team Providers Care Geospatial Technologist Name Role Phone Gennaro Nathan MD Primary Care Provider Vu Banerjee Unavailable [phone] Reason For Referral No Information Medications Medication SIG (Take, Route, Frequency, Duration) Notes Start Date End Date Status Colyte w Flavor Packs 240 GM as directed Orally as directed for 1 day(s) 11/29/2014 Active Prilosec 20 MG 1 capsule Orally Onc e a day Active hydroCHLOROthiazide Active Simvastatin Active Problems Problem Type SNOMED Code ICD Code Onset Dates Problem Status W/U Status Risk Notes Problem Epigastric pain (87933169) Abdominal pain, epigastric (789.06) Active confirmed Problem Colon cancer screening (179170198) Colon cancer screening (V76.51) Active confirmed Problem Gastroesophageal reflux disease (278105565) GERD (gastroesophag eal reflux disease) (530.81) Active confirmed Problem Ultrasonography of kidney abnormal ([id number]) Abnormal renal ultrasound (793.5) Active confirmed Plan Of Treatment Pending Test Test Name Order Date BUN 12/09/2014 CREATININE 12/09/2014 Future Test Test Name Order Date UPPER GI ENDOSCOPY 11/29/2014 COLONOSCOPY 11/29/2014 Insurance Providers Payer Name Payer Address Payer Phone Subscriber Number Group Number Insured Name Patient Relationship to Insured Coverage Start Date Coverage End Date [facility] [address] [place] [address] [id number] MELINDA JOSEPH Self - patient is the insured Medical (General) History Medical History History ICD Code Hypertension Denies [place],DM,CVA,Lung disease,renal dise ase GERD-describes an EGD at [facility] > 10 yrs ago-told of a HH and some inflammation Hyperlipidemia Surgical History Surgery Date(Month/Year) cyst removal
[2025-04-06 08:00] LABS: MANUAL DIFF FLAG NO
[2025-04-06 08:23] LABS: Hematocrit 45.5 % (42.0-52.0); Hemoglobin 15.8 g/dl (14.0-18.0); Imm Gran Abs Auto 0.00 X10*3/uL (0.00-0.03); Imm Gran Pct Auto 0.0 % (0.0-0.4); Lymphocytes Absolute Auto 1.6 X10*3/uL (1.2-4.9); Mean Corpuscular HGB Conc 34.7 g/dl (31.0-36.0); Mean Corpuscular Hemoglobin 28.8 pg (27.0-33.0); Mean Corpuscular Volume 82.9 fL (80.0-98.0); NRBC Abs Auto 0.000 X10*3/uL (0.0-0.012); NRBC Pct Auto 0.0 /100WBC (0.0-0.2); Platelet Count 260 X10*3/uL (160-400); Red Blood Count 5.49 X10*6/uL (4.60-5.80); White Blood Count 5.0 X10*3/uL (4.8-10.8)
[2025-04-06 08:49] LABS: Hemoglobin A1C 155.2024 umol/L; Total Hemoglobin (HGBA1C) 4040.4849 umol/L
[2025-04-06 08:49] LABS: Appearance Urine Clear; Glucose Urine UA Negative (Negative); PH 6.0 (5.0-9.0); Specific Gravity - Urine 1.025 (1.005-1.025)
[2025-04-06 09:12] LABS: Albumin Level 4.8 g/dL (3.5-5.0); Alkaline Phosphatase 94 U/L (39-117); Anion Gap 15 (12-20); Aspartate Amino Transferase 59 U/L (5-37); Blood Urea Nitrogen 15 mg/dL (9-16); Calcium 10.3 mg/dL (8.4-10.2); Carbon Dioxide 30 mmol/L (22-29); Chloride 102 mmol/L (96-108); Cholesterol 137 mg/dL (<200); Estimated Glomerular Filt Rate > 60; HDL Cholesterol 46 mg/dL (>40); Magnesium 2.1 mg/dL (1.6-2.6); Potassium 4.0 mmol/L (3.3-5.1); Sodium 143 mmol/L (135-145); Total Protein 7.5 g/dL (6.5-8.0); Triglycerides 60 mg/dL (<150)
[2025-04-06 09:41] LABS: Alanine Aminotransferase 37 U/L (0-40)
== END 2025-04-06 07:42 | disposition home or self-care (01) ==
LOC: HO.LAB 07:41
PROVIDERS: PCP Internal Medicine; Visit Provider Internal Medicine
DX: E83.42 Hypomagnesemia (principal); E78.00 Pure hypercholesterolemia, unspecified; R73.01 Impaired fasting glucose; D64.9 Anemia, unspecified; R17 Unspecified jaundice; R30.0 Dysuria
CPT/HCPCS: 36415; 80053; 80061; 81003; 82248; 82306; 83036; 83735; 84443; 85025

== ENCOUNTER 2025-04-17 08:50 | Outpatient (AMB) | payer OTHER, SELFPAY ==
--- NOTE | 2025-04-17 08:52 | MHC.PC.OV ---
Vital Signs 04/17/25 08:53 Height 5 ft 11 in Weight 222 lb 6 oz BMI 31.0 BP 124/82 Blood Pressure Location Lt brachial Position Sitting Pulse 77 Pulse Source Pulse Oximeter Temp 97.0 F Temp Source Temporal Artery Scan Pulse Oximetry (%) 96 Oxygen Delivery Method Room Air Intake Visit Reasons: 4mt f/u Allergies No Known Allergies Allergy (Verified 04/17/25 09:02) Medication List - Last Reconciled 04/17/25 by Gennaro Nathan MD atenolol 50 mg PO DAILY 90 days atorvastatin 40 mg PO DAILY cholecalciferol (vitamin D3) 50 mcg PO DAILY 90 days hydrochlorothiazide 25 mg PO DAILY ibuprofen 200 mg PO Q12H PRN omeprazole 40 mg PO QAM 90 days Tobacco use date assessed: 04/17/25 Dental Screening Dental Screen Date: 04/17/25 Did you have a dental visit in the last 12 months?: Yes Did you have a dental problem in the last 6 months where you did not have access to dental care?: No Was dental information given to patient?: Patient has dentist [facility] HPI Details Patient comes in today for his follow up visit States that he feels okay He denies any headaches or dizziness Denies any chest pains, no SOB No nausea/vomiting, no abdominal pain No change in bowel habits noted He had his follow up labs done about a week ago - to discuss his results [facility] Medical History Vitamin D deficiency Elevated bilirubin Obesity (BMI 30-39.9) Impaired fasting glucose GERD (gastroesophageal reflux disease) Pure hypercholesterolemia Benign essential hypertension Surgical History No pertinent past surgical history Family History Father Hypertension CVD (cardiovascular disease) Mother Hypertension Cancer Breast cancer Ovarian cancer Daughter In good health Sister In good health Sister In good health Sister In good health Brother In good health Social History Household Members: None Housing: House Alcohol intake: former Patient Tobacco Use Status: Former Tobacco user e-Cigarette/Vaping Use: Never Used Second Hand Smoke Exposure: Yes service: No Current occupational status: employed Current occupation: self employed- remodeling Cognitive needs: No Hearing needs: No Vision needs: No Questionnaire PHQ-9 Over the last 2 weeks, how often have you been bothered by any of the following problems? 1. Little interest or pleasure in doing things: not at all 2. Feeling down, depressed, or hopeless: not at all 3. Trouble falling or staying asleep, or sleeping too much: several days 4. Feeling tired or having little energy: not at all 5. Poor appetite or overeating: several days 6. Feeling bad about yourself - or that you are a failure or have let yourself or your family down: not at all 7. Trouble concentrating on things, such as reading the newspaper or watching television: not at all 8. Moving or speaking so slowly that other people could have noticed. Or the opposite - being so fidgety or restless that you have been moving around a lot more than usual: not at all 9. Thoughts that you would be better off or of hurting yourself in some way: not at all Total score: 2 Depression Screening Interpretation: Negative Depression Screening Done: Yes 94207 - PHQ-9 Billing: Yes Source: Developed by Drs. Bhavin Gongora, Scarlett Ramírez, Pola Fairchild and colleagues, with an educational allyson from [employer]. Thrive Questionnaire Date Thrive assessed: 11/23/24 I am a: Patient What is your living situation today?: I have a steady place to live Within the past 12 months, did the food you bought not last and you didn't have the money to get more?: Never true Within the past 12 months, did you worry whether your food would run out before you got money to buy more?: Never true Do you have trouble paying for medicines?: No Do you have trouble getting transportation to medical appointments?: No Do you have trouble paying your heating and electricity bill?: I choose not to answer this question Do you have trouble taking care of your child, family member or friend?: No Do you have trouble with day-to-day activities such as bathing, preparing meals, shopping, managing finances, etc.?: No Are you currently unemployed and looking for a job?: No Are you interested in more education?: No Please select the resources that you would like help with: None Currently or been in a relationship where the following occur: I choose not to answer THRIVE Score: 0 AUDIT C Alcohol Use Questionnaire (AUDIT-C) 1. How often do you have a drink containing alcohol?: Never 3. How often do you have six or more drinks on one occasion?: Never Total Score: 0 Score Reviewed/Action Taken: Yes LEYLA-7 AMB Questionnaire LEYLA-7 Date LEYLA - 7 assessed: 11/23/24 Feeling nervous, anxious, or on edge: 0 = Not at all Not being able to stop or control worryin = Not at all Worrying too much about different things: 0 = Not at all Trouble relaxin = Not at all Being so restless that it is hard to sit still: 0 = Not at all Becoming easily annoyed or irritable: 0 = Not at all Feeling afraid as if something awful might happen: 0 = Not at all Total LEYLA-7 score (0-4 normal; 5-9 mild; 10-14 moderate; 15-21 severe): 0 Source: Developed by Drs. Bhavin Gongora, Scarlett Ramírez, Pola Fairchild and colleagues, with an educational allyson from [employer]. Review of Systems Const Denies chills, Denies fatigue, Denies fever(s) and Denies headache(s) ENT Denies dysphagia, Denies dizziness, Denies otalgia, Denies headache(s), Denies neck pain, Denies odynophagia and Denies sore throat Card Denies chest pain, Denies palpitations and Denies dyspnea Resp Denies chest congestion, Denies cough and Denies dyspnea GI Denies abdominal pain, Denies constipation, Denies dysphagia, Denies heartburn, Denies diarrhea, Denies nausea, Denies odynophagia and Denies vomiting Denies dysuria, Denies nocturia and Denies urinary frequency Musc Denies back pain, Denies arthralgias and Denies neck pain Skin/Breast Denies rash Neuro Denies dizziness and Denies headache(s) Psych Denies anxiety and Denies depression Endo Denies fatigue and Denies palpitations Physical exam (Primary Care) Vital Signs: Last Vital Signs Temp 97.0 F 04/17/25 08:53 Pulse 77 04/17/25 08:53 BP 124/82 04/17/25 08:53 Pulse Ox 96 04/17/25 08:53 Oxygen Delivery Method Room Air 04/17/25 08:53 BMI result Body Mass Index 31.0 Tobacco/Smoking Status: Tobacco use Status Tobacco use date assessed 04/17/25 04/17/25 08:55 Patient Tobacco Use Status Former Tobacco user 04/17/25 08:55 e-Cigarette/Vaping Use Never Used 04/17/25 08:55 PHQ-9: PHQ-9 Score PHQ-9: Total score 2 04/17/25 08:55 Depression Screening Interpretation: Negative Thrive Assessment: Date of Thrive Assessment Date Thrive assessed 11/23/24 04/17/25 08:55 Currently or been in a relationship where the following occur: I choose not to answer Const General: no acute distress and alert HENMT Ears: TM's normal bilaterally and EAC's normal Throat: Yes posterior oropharynx normal and Yes tonsils normal (no TP congestion) Neck Neck: Yes supple and No lymphadenopathy Thyroid: Thyroid normal Resp Auscultation: clear to auscultation bilaterally, no rales and no wheezes Cardio Rate: regular rate Rhythm: regular rhythm Heart sounds: no murmurs GI Palpation (GI): Soft to palpation and nontender Auscultation: normal bowel sounds General: Yes no CVA tenderness Back/Spine/Pelvis Back: no CVA tenderness Thoracic/Lumbar Spine: No lumbar spinal tenderness Skin Rashes: no rashes Extrem General: Yes no clubbing, cyanosis or edema Results Reviewed Results Reviewed: Laboratory Tests 04/06/25 04/06/25 07:51 07:59 WBC 5.0 Hgb 15.8 Hct 45.5 Plt Count 260 Sodium 143 Potassium 4.0 D Creatinine 1.13 Estimated GFR > 60 Fasting Glucose 109 H Hemoglobin A1c % 5.7 Calcium 10.3 H Magnesium 2.1 AST 59 H ALT 37 Triglycerides 60 Cholesterol 137 LDL Cholesterol, Calc 79 HDL Cholesterol 46 25-OH Vitamin D Total 49.8 TSH 1.45 Ur Specific [place] 1.025 Urine Protein Negative Urine Glucose (UA) Negative Urine Blood Negative Urine Nitrite Negative Ur Leukocyte Esterase Negative Coding Level of Care Code Est Pt Level 4 (61336) Diagnoses Pure hypercholesterolemia E78.00 Benign essential hypertension I10 Impaired fasting glucose R73.01 Gastroesophageal reflux disease without esophagitis K21.9 Esophagitis presence: without esophagitis Vitamin D deficiency E55.9 Elevated bilirubin R17 Hypokalemia E87.6 Obesity (BMI 30-39.9) E66.9 Additional Codes PHQ-9 - 08708 - PHQ-9 Billing: Yes ([id number]) Assessment & Plan Assessment & Plan (1) Pure hypercholesterolemia: Code(s): E78.00 - Pure hypercholesterolemia, unspecified Category: Medical Plan: Results of his labs done last week reviewed and discussed with patient Reinforced low cholesterol diet Continue Atorvastatin 40 mg QD Will recheck his labs and fasting lipids in 4 months for follow up (2) Benign essential hypertension: Code(s): I10 - Essential (primary) hypertension Category: Medical Plan: Reinforced low sodium diet - goal is systolic BP of 120 mm or less Continue Atenolol 50 mg QD and HCTZ 25 mg QD (3) Impaired fasting glucose: Code(s): R73.01 - Impaired fasting glucose Category: Medical Plan: Patient's HgbA1c remained normal at 5.7% on his recent labs done about a week ago; was previously at 5.5% a few months back Reinforced low calorie diet/exercise as tolerated (4) GERD (gastroesophageal reflux disease): Code(s): K21.9 - Gastro-esophageal reflux disease without esophagitis Category: Medical Qualifiers: Esophagitis presence: without esophagitis Qualified Code(s): K21.9 - Gastro-esophageal reflux disease without esophagitis Plan: Dietary restrictions reinforced Continue Omeprazole 40 mg Q AM (5) Vitamin D deficiency: Code(s): E55.9 - Vitamin D deficiency, unspecified Category: Medical Plan: Continue Vitamin D3 2000 units QD (6) Elevated bilirubin: Code(s): R17 - Unspecified jaundice Category: Medical Plan: His total bilirubin remains elevated on his recent labs His direct bilirubin level was normal on his labs done last week Patient is asymptomatic with no acute GI symptoms Will send patient for abdominal US for further evaluation Will also check his labs for any evidence of hemolysis when he goes for his next routine labs in a few months (7) Hypokalemia: Code(s): E87.6 - Hypokalemia Category: Medical Plan: His serum potassium level was normal on his recent labs Patient was previously advised to eat a banana daily to help replenish his potassium level as he is on oral diuretics Will continue to monitor his potassium level regularly (8) Obesity (BMI 30-39.9): Code(s): E66.9 - Obesity, unspecified Category: Medical Plan: Reinforced diet/exercise as tolerated/lose weight Plan Follow up in 4 months Orders: Orders Complete Blood Count Auto Diff 4 Months D64.9 - Anemia, unspecified Comprehensive [place]. Panel Fast 4 Months E78.00 - Pure hypercholesterolemia, unspecified TSH reflex Free T4 4 Months E78.00 - Pure hypercholesterolemia, unspecified Vitamin D 25-OH Total 4 Months E55.9 - Vitamin D deficiency, unspecified Hemoglobin A1c 4 Months R73.01 - Impaired fasting glucose Lactate Dehydrogenase 4 Months R17 - Unspecified jaundice US abdomen complete Today R17 - Unspecified jaundice Lipid Panel 4 Months E78.00 - Pure hypercholesterolemia, unspecified UA CC w/rflx Micro + Cult 4 Months R30.0 - Dysuria Direct Alfa (RUSS) 4 Months R17 - Unspecified jaundice
[2025-04-17 08:53] VITALS: BP 124/82; PULSE 77; TEMP 36.1; O2SAT 96; BMI 31.0
--- OUTSIDE RECORDS SUMMARY | 2025-04-17 09:28 | XMS_ITS | Patient Health Record ---
Author Organization [facility] Address [address] [place] [address] Care Team Providers Care Commercial Development Manager Name Role Phone Gennaro Nathan MD Primary Care Provider Vu Banerjee Unavailable [phone] Reason For Referral No Information Medications Medication [...] W/U Status Risk Notes Problem Epigastric pain (01421496) Abdominal pain, epigastric (789.06) Active confirmed Problem Colon cancer screening (219831805) Colon cancer screening (V76.51) Active confirmed Problem Gastroesophageal reflux disease (537830286) GERD (gastroesophag eal reflux disease) (530.81) Active confirmed Problem Ultrasonography of kidney abnormal ([id number]) Abnormal renal ultrasound (793.5) Active confirmed Plan Of Treatment Pending Test Test Name Order Date BUN 12/09/2014 CREATININE 12/09/2014 Future Test Test Name Order Date UPPER GI ENDOSCOPY 11/29/2014 COLONOSCOPY 11/29/2014 Insurance Providers Payer Name Payer Address Payer Phone Subscriber Number Group Number Insured Name Patient Relationship to Insured Coverage Start Date Coverage End Date [facility] [facility] [employer] [address] [place] [address] [id number] MELINDA JOSEPH Self - patient is the insured Medical (General) History Medical History History ICD Code Hypertension Denies [place],DM,CVA,Lung disease,renal dise ase GERD-describes an EGD at [facility] > 10 yrs ago-told of a HH and some inflammation Hyperlipidemia Surgical History Surgery Date(Month/Year) cyst removal
== END 2025-04-17 09:23 | disposition home or self-care (01) ==
LOC: HO.HMCH 08:51
PROVIDERS: PCP Internal Medicine; Visit Provider Internal Medicine
DX: I10 Essential (primary) hypertension (principal); E78.00 Pure hypercholesterolemia, unspecified; Z68.31 Body mass index [BMI] 31.0-31.9, adult; E66.9 Obesity, unspecified; R73.01 Impaired fasting glucose; K21.9 Gastro-esophageal reflux disease without esophagitis; E55.9 Vitamin D deficiency, unspecified; R17 Unspecified jaundice; E87.6 Hypokalemia

== ENCOUNTER → 2025-04-17 08:50 | Outpatient (BNVA) | payer OTHER, SELFPAY | PROVIDERS: PCP Internal Medicine; Visit Provider Internal Medicine | DX: I10 Essential (primary) hypertension (principal); E78.00 Pure hypercholesterolemia, unspecified; R73.01 Impaired fasting glucose; K21.9 Gastro-esophageal reflux disease without esophagitis; E55.9 Vitamin D deficiency, unspecified; R17 Unspecified jaundice; E87.6 Hypokalemia; E66.9 Obesity, unspecified; D64.9 Anemia, unspecified; R30.0 Dysuria; Z68.31 Body mass index [BMI] 31.0-31.9, adult | CPT/HCPCS: 96127; 99212 ==

== ENCOUNTER 2025-06-18 09:57 | Outpatient (REF) | payer OTHER, SELFPAY | END 2025-06-18 09:58 | disposition home or self-care (01) | LOC: HO.HMGCX 09:57 | PROVIDERS: PCP Internal Medicine; Visit Provider Internal Medicine | DX: R17 Unspecified jaundice (principal) | CPT/HCPCS: 76700 ==

== ENCOUNTER → 2025-06-18 09:58 | Outpatient (BNV) | payer OTHER, SELFPAY | PROVIDERS: PCP Internal Medicine; Visit Provider Radiology Vascular & Interventional Radiology | DX: K76.0 Fatty (change of) liver, not elsewhere classified (principal) | CPT/HCPCS: 76700 ==